=== PATIENT | male | born 1965 | race Caucasian/White ===

== ENCOUNTER 2018-01-28 21:45 | Emergency (ER) | payer OTHER ==
[2018-01-28 22:29] VITALS: RESP 18
--- NOTE | 2018-01-28 23:32 | ED ---
General Adult HPI - General Source: patient (And friend), RN notes reviewed Mode of arrival: ambulatory Limitations: no limitations <Raul Smith - Last Filed: 01/29/18 00:54> <Terrance Condon - Last Filed: 01/29/18 04:31> - General Chief complaint: Psychiatric Symptoms Stated complaint: Depression Time Seen by Provider: 01/28/18 23:22 - History of Present Illness Initial comments: Patient is a pleasant 52-year-old male presenting to the emergency Department with a friend for depression. Patient does admit to being a drinker. Patient has had several seizures over the past year. Last one was approximately a week ago. Patient states he just wakes up in the hospital. Last time patient was at [facility]. Patient has not had seizures since that time. Patient is not supposed be on any seizure medication. Patient does feel depressed regarding his alcohol problems. Patient denies suicidal or homicidal thoughts. No hallucinations. No physical complaints. (Raul Smith) - Related Data Home Medications Medication Instructions Recorded Confirmed Acetaminophen Tab [Tylenol Tab] 1,000 mg PO Q6HR PRN 01/28/18 01/28/18 Thermacare Patch 1 patch TOPICAL DAILY PRN 01/28/18 01/28/18 Vitamin B Complex 1 cap PO DAILY 01/28/18 01/28/18 Allergies Allergy/AdvReac Type Severity Reaction Status Date / Time No Known Allergies Allergy Verified 01/28/18 23:32 Review of Systems ROS Other: All systems not noted in ROS Statement are negative. Constitutional: Denies: fever Eyes: Denies: eye pain ENT: Denies: ear pain Respiratory: Denies: cough Cardiovascular: Denies: chest pain Endocrine: Denies: fatigue Gastrointestinal: Denies: abdominal pain Genitourinary: Denies: dysuria Musculoskeletal: Denies: back pain Skin: Denies: rash Neurological: Denies: headache, weakness, confusion <Raul Smith - Last Filed: 01/29/18 00:54> ROS Other: All systems not noted in ROS Statement are negative. <Terrance Condon - Last Filed: 01/29/18 04:31> ROS Statement: Those systems with pertinent positive or pertinent negative responses have been documented in the HPI. Past Medical History Past Medical History: Seizure Disorder Additional Past Medical History / Comment(s): head injury. History of Any Multi-Drug Resistant Organisms: None Reported Past Surgical History: Orthopedic Surgery Past Psychological History: Depression Smoking Status: Current every day smoker Past Alcohol Use History: Abuse Past Drug Use History: Marijuana <Raul Smith - Last Filed: 01/29/18 00:54> General Exam Limitations: no limitations General appearance: alert, in no apparent distress Head exam: Present: atraumatic, normocephalic Eye exam: Present: normal appearance, PERRL, EOMI. Absent: nystagmus ENT exam: Present: normal oropharynx Neck exam: Present: normal inspection Respiratory exam: Present: normal lung sounds bilaterally Cardiovascular Exam: Present: regular rate, normal rhythm GI/Abdominal exam: Present: soft. Absent: tenderness Extremities exam: Present: normal inspection Neurological exam: Present: alert, CN II-XII intact. Absent: motor sensory deficit Expanded Neurological exam: Present: protecting the airway Speech: Present: fluid speech Cranial nerves: EOM's Intact: Normal Motor strength exam: RUE: 5, LUE: 5, RLE: 5, LLE: 5 Eye Response: (4) open spontaneously Motor Response: (6) obeys commands Verbal Response: (5) oriented Psychiatric exam: Present: normal affect, normal mood Skin exam: Present: normal color <Raul Smith - Last Filed: 01/29/18 00:54> Course <Raul Smith - Last Filed: 01/29/18 00:54> <Terrance Condon - Last Filed: 01/29/18 04:31> Vital Signs 01/28/18 22:23 Temperature 98.2 F Pulse Rate 78 Respiratory 18 Rate Blood Pressure 164/88 O2 Sat by Pulse 97 Oximetry - Reevaluation(s) Reevaluation #1: 01/29/18 00:54 [facility] was contacted and had limited documentation. They state patient was seen there only for alcohol intoxication. They're unable to fax over any additional chart or information. (Raul Smith) Medical Decision Making <Raul Smith - Last Filed: 01/29/18 00:54> <Terrance Condon - Last Filed: 01/29/18 04:31> - Medical Decision Making I receive this patient has a sign out, pending behavioral health evaluation. The psychiatrist does feel that the patient is stable for outpatient treatment. The patient is les for safety. (Terrance Condon) - Lab Data Lab Results 01/28/18 Range/Units 23:34 Urine Opiates Screen Not Detected (NotDetected) Ur Oxycodone Screen Not Detected (NotDetected) Urine Methadone Screen Not Detected (NotDetected) Ur Propoxyphene Screen Not Detected (NotDetected) Ur Barbiturates Screen Not Detected (NotDetected) U Tricyclic Antidepress Not Detected (NotDetected) Ur Phencyclidine Scrn Not Detected (NotDetected) Ur Amphetamines Screen Not Detected (NotDetected) U Methamphetamines Scrn Not Detected (NotDetected) U Benzodiazepines Scrn Not Detected (NotDetected) Urine Cocaine Screen Not Detected (NotDetected) U Marijuana (THC) Screen Detected H (NotDetected) Disposition <Raul Smith - Last Filed: 01/29/18 00:54> Is patient prescribed a controlled substance at d/c from ED?: No <Terrance Condon - Last Filed: 01/29/18 04:31> Clinical Impression: Mood disorder Disposition: HOME SELF-CARE Condition: Fair Instructions: Mood Disorders (ED) Referrals: None,Stated [Primary Care Provider] - 1-2 days Kenna Batres MD [Medical Doctor] - 1-2 days
[2018-01-28] MEDS ORDERED: NICOTINE 14MG/24HR PATCH TRANSDERM STA (23:43)
[2018-01-28 23:53] LABS: Amphetamine Screen,Urine Not Detected (NotDetected); Barbiturate Screen,Urine Not Detected (NotDetected); Benzodiazepines Screen,Urine Not Detected (NotDetected); Cocaine Screen,Urine Not Detected (NotDetected); Methadone Screen, Urine Not Detected (NotDetected); Opiate Screen,Urine Not Detected (NotDetected); Oxycodone Screen, Urine Not Detected (NotDetected); Phencyclidine Screen,Urine Not Detected (NotDetected); Tricyclic Antidepressant,Urine Not Detected (NotDetected); Urn Cannabinoid Scrn Detected (NotDetected)
[2018-01-29 05:15] VITALS: BP 127/78; PULSE 80; TEMP 97.7
== END 2018-01-29 05:00 | disposition home or self-care (01) ==
LOC: EC 21:45
DX: F32.9 Major depressive disorder, single episode, unspecified (principal); F17.200 Nicotine dependence, unspecified, uncomplicated
CPT/HCPCS: 82075; 80306; 99284; S4990

== ENCOUNTER → 2018-04-05 | Outpatient (CLI) | payer OTHER ==
--- NOTE | 2018-04-07 09:41 | MR ---
EXAMINATION TYPE: MR lumbar spine wo con DATE OF EXAM: 04/05/2018 COMPARISON: NONE HISTORY: Lumbago with right-sided sciatica per order. Back pain for 25 years per patient. TECHNIQUE: Multiplanar, multisequence imaging of the lumbar spine is performed without IV contrast. FINDINGS: Survey images show levoconvex scoliosis centered at L3 level. Sagittal images of the lumbar spine show vertebral body heights to appear satisfactory. Some prominent Schmorl nodes upper lumbar spine are present. There is borderline grade 2 anterolisthesis of L5 on S1 measuring up to 11 mm on s agittal images from posterior vertebral body margin. Multilevel disc desiccation with fairly moderate to advanced multilevel disc space narrowing is seen. Multilevel vacuum disc phenomenon is seen. Mult ilevel small posterior disc herniations are seen on sagittal images The conus medullaris is high in p osition ending at mid T12 level. No suspicious signal is seen. No suspicious clumping of lumbosacral nerve roots is noted. Bilateral pars defects L5 level felt present. Some heterogeneous Modic type I e ndplate changes L3-L4 level are seen. Moderate multilevel anterior spurring mid to lower lumbar spine is present. Axial images at T12-L1 level are felt within normal limits. Axial images at L1-L2 level show mild to moderate broad disc bulge mildly effacing anterior thecal sa c, bilateral neural foramina are patent. Axial images at the L2-L3 level show moderate broad-based posterior disc protrusion effacing anterior thecal sac on axial image 19, bilateral neural foramina are patent. Axial images at L3-L4 level show moderate broad disc bulge effacing anterior thecal sac and causing m ild to moderate right and mild left-sided anterior inferior neural foraminal narrowing. Axial images at the L4-L5 level show spondylolisthesis and left paracentral disc protrusion effacing anterolateral thecal sac and lateral recess. There is mild to moderate left greater than right facet degenerative changes and ligament flavum hypertrophy. There is moderate left-sided neural foraminal n arrowing. Right-sided neural foramen is patent. Axial images at L5-S1 level show advanced facet degenerative changes bilaterally, there is effacement of right posterior lateral thecal sac. There is spondylolisthesis and central disc protrusion. There is advanced left-sided neural foraminal narrowing encroaching on left L5 nerve sagittal image 6. Rig ht-sided neural foramina shows mild to moderate inferior neural foraminal narrowing. No suspicious incidental retroperitoneal findings are seen. IMPRESSION: Bilateral pars defects L5 level with grade 2 spondylolisthesis L5 on S1. Multilevel degen erative changes in lumbar spine most prominent mid to lower lumbar levels as detailed above.
== END | disposition home or self-care (01) ==
LOC: RADMRIMAIN 17:26
PROVIDERS: ATTEND Internal Medicine
DX: M43.17 Spondylolisthesis, lumbosacral region (principal); M47.27 Other spondylosis with radiculopathy, lumbosacral region
CPT/HCPCS: 72148

== ENCOUNTER 2018-05-31 12:45 | Emergency (ER) | payer OTHER ==
[2018-05-31] MEDS ORDERED: SODIUM CHLORIDE 0.9% 1,000 ML IV STA (13:30)
[2018-05-31 14:18] LABS: Basophils % (A) 0 %; Eosinophils # (A) 0.2 k/uL (0-0.7); Eosinophils % (A) 2 %; HCT 42.4 % (39.0-53.0); HGB 13.9 gm/dL (13.0-17.5); Lymphocytes # (A) 1.5 k/uL (1.0-4.8); Lymphocytes % (A) 14 %; MCH 30.5 pg (25.0-35.0); MCHC 32.9 g/dL (31.0-37.0); MCV 92.9 fL (80.0-100.0); Mean Platelet Volume 7.4; Monocytes # (A) 0.5 k/uL (0-1.0); Monocytes % (A) 5 %; Neutrophils # (A) 8.3 k/uL (1.3-7.7); Neutrophils % (A) 78 %; Platelet Count 247 k/uL (150-450); RBC 4.56 m/uL (4.30-5.90); RDW 12.2 % (11.5-15.5); WBC 10.7 k/uL (3.8-10.6)
[2018-05-31 14:21] LABS: ALT 19 U/L (21-72); AST 27 U/L (17-59); Albumin 4.2 g/dL (3.5-5.0); Alcohol <10 mg/dL; Alkaline Phosphatase 76 U/L (38-126); Anion Gap 10 mmol/L; Blood Urea Nitrogen 13 mg/dL (9-20); Calcium 9.8 mg/dL (8.4-10.2); Carbon Dioxide 24 mmol/L (22-30); Chloride 104 mmol/L (98-107); Glucose 99 mg/dL (74-99); Magnesium 1.7 mg/dL (1.6-2.3); Potassium 3.8 mmol/L (3.5-5.1); Sodium 138 mmol/L (137-145); Total Bilirubin 0.4 mg/dL (0.2-1.3); Total Protein 7.4 g/dL (6.3-8.2)
--- NOTE | 2018-05-31 14:48 | CT ---
EXAMINATION TYPE: CT brain wo con DATE OF EXAM: 05/31/2018 COMPARISON: None HISTORY: Seizure activity. CT DLP: 1094.[address] of the brain was performed. The ventricles, basal cisterns and sulci overlying the cerebral convexities demonstrate mild enlargem ent. Small area of remote insult right frontal lobe. There is no evidence for intracranial hemorrhage or sulcal effacement. There is decreased attenuation about the periventricular white matter and deep white matter of both c erebral hemispheres, compatible with chronic small vessel ischemia. Differential diagnosis does inclu de demyelination. No mass effects are seen.No midline shift. Osseous calvarium is intact. If symptoms persist consider MRI. IMPRESSION: 1. Age related atrophic and chronic small vessel ischemic change without acute intracranial process s een at this time.
[2018-05-31 14:49] LABS: Lactic Acid, Venous 1.3 mmol/L (0.7-2.0)
--- NOTE | 2018-05-31 15:13 | ED ---
Weakness HPI - General Chief complaint: Weakness Stated complaint: weakness, bad memory, HAD a seizure Time Seen by Provider: 05/31/18 13:16 Source: patient, RN notes reviewed Mode of arrival: ambulatory Limitations: no limitations - History of Present Illness Initial comments: 53-year-old male presents emergency Department chief complaint of confusion. Patient states that he was discharged from [facility] yesterday after he had a seizure and was transferred from [facility] today. Patient states he was admitted on Sunday and discharge on . Patient states that he just felt fatigued today and felt confused at times. Patient is not bleeding had another seizure. Patient states is currently taking Keppra. Patient denies any focal weakness no difficulty ambulate in. Denies illicit drug use no alcohol abuse. Patient states he has not started on any other new medications. Denies chest pain, shortness breath, nausea, vomiting, diarrhea constipation. No fevers or chills. - Related Data Home Medications Medication Instructions Recorded Confirmed Escitalopram [Lexapro] 20 mg PO DAILY 05/31/18 05/31/18 Ibuprofen [Motrin Ib] 400 mg PO Q6H PRN 05/31/18 05/31/18 Naproxen Sodium [Aleve] 220 mg PO DAILY PRN 05/31/18 05/31/18 levETIRAcetam [Keppra] 500 mg PO Q12HR 05/31/18 05/31/18 Allergies Allergy/AdvReac Type Severity Reaction Status Date / Time No Known Allergies Allergy Verified 05/31/18 13:17 Review of Systems ROS Statement: Those systems with pertinent positive or pertinent negative responses have been documented in the HPI. ROS Other: All systems not noted in ROS Statement are negative. Past Medical History Past Medical History: Seizure Disorder Additional Past Medical History / Comment(s): head injury. History of Any Multi-Drug Resistant Organisms: None Reported Past Surgical History: Orthopedic Surgery Past Psychological History: Depression Smoking Status: Current every day smoker Past Alcohol Use History: Abuse Past Drug Use History: Marijuana General Exam Limitations: no limitations General appearance: alert, in no apparent distress Head exam: Present: atraumatic, normocephalic, normal inspection Eye exam: Present: normal appearance, PERRL, EOMI. Absent: scleral icterus, conjunctival injection, periorbital swelling ENT exam: Present: normal exam, normal oropharynx, mucous membranes moist, TM's normal bilaterally Neck exam: Present: normal inspection. Absent: tenderness, meningismus, lymphadenopathy Respiratory exam: Present: normal lung sounds bilaterally. Absent: respiratory distress, wheezes, rales, rhonchi, stridor Cardiovascular Exam: Present: regular rate, normal rhythm, normal heart sounds. Absent: systolic murmur, diastolic murmur, rubs, gallop, clicks GI/Abdominal exam: Present: soft, normal bowel sounds. Absent: distended, tenderness, guarding, rebound, rigid Neurological exam: Present: alert, oriented X3, CN II-XII intact, reflexes normal, other (Finger to nose intact bilaterally without receiving). Absent: motor sensory deficit Skin exam: Present: warm, dry, intact, normal color. Absent: rash Course Vital Signs 05/31/18 05/31/18 05/31/18 13:04 13:32 13:40 Temperature 98 F Pulse Rate 97 86 82 Respiratory 20 10 L 21 Rate Blood Pressure 136/95 142/98 O2 Sat by Pulse 100 99 98 Oximetry 05/31/18 05/31/18 05/31/18 13:46 13:50 14:00 Temperature Pulse Rate 81 89 72 Respiratory 22 18 19 Rate Blood Pressure 142/98 O2 Sat by Pulse 98 100 Oximetry 05/31/18 05/31/18 05/31/18 14:10 14:20 15:30 Temperature 98.6 F Pulse Rate 78 79 75 Respiratory 17 20 18 Rate Blood Pressure 132/88 145/90 O2 Sat by Pulse 99 100 100 Oximetry 05/31/18 16:22 Temperature 97.8 F Pulse Rate 82 Respiratory 16 Rate Blood Pressure 135/81 O2 Sat by Pulse 99 Oximetry Medical Decision Making - Medical Decision Making 53-year-old male presented from for not feeling well and subject confusion. Patient is awake alert and oriented 4. Patient has normal gait here. Patient lab work, CT, EKG is unremarkable. Patient does have marijuana onboard. Patient may have been postictal along with use of marijuana today. Patient will be discharged return parameters were discussed. - Lab Data Result diagrams: 05/31/18 13:40 05/31/18 13:40 Lab Results 05/31/18 05/31/18 05/31/18 Range/Units 13:40 13:40 13:40 WBC 10.7 H (3.8-10.6) k/uL RBC 4.56 (4.30-5.90) m/uL Hgb 13.9 (13.0-17.5) gm/dL Hct 42.4 (39.0-53.0) % MCV 92.9 (80.0-100.0) fL MCH 30.5 (25.0-35.0) pg MCHC 32.9 (31.0-37.0) g/dL RDW 12.2 (11.5-15.5) % Plt Count 247 (150-450) k/uL Neutrophils % 78 % Lymphocytes % 14 % Monocytes % 5 % Eosinophils % 2 % Basophils % 0 % Neutrophils # 8.3 H (1.3-7.7) k/uL Lymphocytes # 1.5 (1.0-4.8) k/uL Monocytes # 0.5 (0-1.0) k/uL Eosinophils # 0.2 (0-0.7) k/uL Basophils # 0.0 (0-0.2) k/uL Sodium 138 (137-145) mmol/L Potassium 3.8 (3.5-5.1) mmol/L Chloride 104 (98-107) mmol/L Carbon Dioxide 24 (22-30) mmol/L Anion Gap 10 mmol/L BUN 13 (9-20) mg/dL Creatinine 0.69 (0.66-1.25) mg/dL Est GFR (CKD-EPI)AfAm >90 (>60 ml/min/1.73 sqM) Est GFR (CKD-EPI)NonAf >90 (>60 ml/min/1.73 sqM) Glucose 99 (74-99) mg/dL Plasma Lactic Acid Bartolo 1.3 (0.7-2.0) mmol/L Calcium 9.8 (8.4-10.2) mg/dL Magnesium 1.7 (1.6-2.3) mg/dL Total Bilirubin 0.4 (0.2-1.3) mg/dL AST 27 (17-59) U/L ALT 19 L (21-72) U/L Alkaline Phosphatase 76 (38-126) U/L Ammonia 10 (<30) umol/L Troponin I (0.000-0.034) ng/mL Total Protein 7.4 (6.3-8.2) g/dL Albumin 4.2 (3.5-5.0) g/dL Urine Color Urine Appearance (Clear) Urine pH (5.0-8.0) Ur Specific [place] (1.001-1.035) Urine Protein (Negative) Urine Glucose (UA) (Negative) Urine Ketones (Negative) Urine Blood (Negative) Urine Nitrite (Negative) Urine Bilirubin (Negative) Urine Urobilinogen (<2.0) mg/dL Ur Leukocyte Esterase (Negative) Urine Opiates Screen (NotDetected) Ur Oxycodone Screen (NotDetected) Urine Methadone Screen (NotDetected) Ur Propoxyphene Screen (NotDetected) Ur Barbiturates Screen (NotDetected) U Tricyclic Antidepress (NotDetected) Ur Phencyclidine Scrn (NotDetected) Ur Amphetamines Screen (NotDetected) U Methamphetamines Scrn (NotDetected) U Benzodiazepines Scrn (NotDetected) Urine Cocaine Screen (NotDetected) U Marijuana (THC) Screen (NotDetected) Serum Alcohol <10 mg/dL 05/31/18 05/31/18 Range/Units 13:40 15:05 WBC (3.8-10.6) k/uL RBC (4.30-5.90) m/uL Hgb (13.0-17.5) gm/dL Hct (39.0-53.0) % MCV (80.0-100.0) fL MCH (25.0-35.0) pg MCHC (31.0-37.0) g/dL RDW (11.5-15.5) % Plt Count (150-450) k/uL Neutrophils % % Lymphocytes % % Monocytes % % Eosinophils % % Basophils % % Neutrophils # (1.3-7.7) k/uL Lymphocytes # (1.0-4.8) k/uL Monocytes # (0-1.0) k/uL Eosinophils # (0-0.7) k/uL Basophils # (0-0.2) k/uL Sodium (137-145) mmol/L Potassium (3.5-5.1) mmol/L Chloride (98-107) mmol/L Carbon Dioxide (22-30) mmol/L Anion Gap mmol/L BUN (9-20) mg/dL Creatinine (0.66-1.25) mg/dL Est GFR (CKD-EPI)AfAm (>60 ml/min/1.73 sqM) Est GFR (CKD-EPI)NonAf (>60 ml/min/1.73 sqM) Glucose (74-99) mg/dL Plasma Lactic Acid Bartolo (0.7-2.0) mmol/L Calcium (8.4-10.2) mg/dL Magnesium (1.6-2.3) mg/dL Total Bilirubin (0.2-1.3) mg/dL AST (17-59) U/L ALT (21-72) U/L Alkaline Phosphatase (38-126) U/L Ammonia (<30) umol/L Troponin I <0.012 (0.000-0.034) ng/mL Total Protein (6.3-8.2) g/dL Albumin (3.5-5.0) g/dL Urine Color Yellow Urine Appearance Clear (Clear) Urine pH 5.5 (5.0-8.0) Ur Specific [place] 1.006 (1.001-1.035) Urine Protein Negative (Negative) Urine Glucose (UA) Negative (Negative) Urine Ketones Negative (Negative) Urine Blood Negative (Negative) Urine Nitrite Negative (Negative) Urine Bilirubin Negative (Negative) Urine Urobilinogen <2.0 (<2.0) mg/dL Ur Leukocyte Esterase Negative (Negative) Urine Opiates Screen Not Detected (NotDetected) Ur Oxycodone Screen Not Detected (NotDetected) Urine Methadone Screen Not Detected (NotDetected) Ur Propoxyphene Screen Not Detected (NotDetected) Ur Barbiturates Screen Not Detected (NotDetected) U Tricyclic Antidepress Not Detected (NotDetected) Ur Phencyclidine Scrn Not Detected (NotDetected) Ur Amphetamines Screen Not Detected (NotDetected) U Methamphetamines Scrn Not Detected (NotDetected) U Benzodiazepines Scrn Not Detected (NotDetected) Urine Cocaine Screen Not Detected (NotDetected) U Marijuana (THC) Screen Detected H (NotDetected) Serum Alcohol mg/dL Disposition Clinical Impression: Fatigue, Seizure Disposition: HOME SELF-CARE Condition: Stable Instructions: Recurrent Seizures in Adults (ED) Additional Instructions: Please return to the Emergency Department if symptoms worsen or any other concerns. Is patient prescribed a controlled substance at d/c from ED?: No Referrals: Annmarie Thibodeaux MD [Primary Care Provider] - 1-2 days Time of Disposition: 17:02
[2018-05-31 15:39] LABS: Appearance,Urine Clear (Clear); Bilirubin,Urine Negative (Negative); Blood,Urine Negative (Negative); Color,Urine Yellow; Glucose,Urine (UA) Negative (Negative); Ketones,Urine Negative (Negative); Leukocyte Esterase,Urine Negative (Negative); Nitrite,Urine Negative (Negative); PH, Urine 5.5 (5.0-8.0); Protein,Urine Negative (Negative); Specific Gravity,Urine 1.006 (1.001-1.035); Urobilinogen,Urine <2.0 mg/dL (<2.0)
[2018-05-31 15:49] LABS: Amphetamine Screen,Urine Not Detected (NotDetected); Barbiturate Screen,Urine Not Detected (NotDetected); Benzodiazepines Screen,Urine Not Detected (NotDetected); Cocaine Screen,Urine Not Detected (NotDetected); Methadone Screen, Urine Not Detected (NotDetected); Opiate Screen,Urine Not Detected (NotDetected); Oxycodone Screen, Urine Not Detected (NotDetected); Phencyclidine Screen,Urine Not Detected (NotDetected); Tricyclic Antidepressant,Urine Not Detected (NotDetected); Urn Cannabinoid Scrn Detected (NotDetected)
[2018-05-31 17:24] VITALS: BP 128/85; PULSE 95; RESP 20; TEMP 98
== END 2018-05-31 17:10 | disposition home or self-care (01) ==
LOC: EC 12:45
DX: G40.909 Epilepsy, unspecified, not intractable, without status epilepticus (principal); R53.83 Other fatigue; F32.9 Major depressive disorder, single episode, unspecified; F17.200 Nicotine dependence, unspecified, uncomplicated; Z79.899 Other long term (current) drug therapy
CPT/HCPCS: 36415; 93005; 80053; 82140; 83605; 83735; 84484; 85025; 81003; 80306; 70450; 99285; 96360; 96361; G0480; 80320

== ENCOUNTER → 2018-11-26 | Outpatient (CLI) | payer OTHER ==
--- NOTE | 2018-11-26 13:14 | MR ---
EXAMINATION TYPE: MR brain wo con DATE OF EXAM: 11/26/2018 COMPARISON: CT brain May 31, 2018 HISTORY: Seizure disorder, history of prior hemorrhage with baldomero hole decompression for patient. TECHNIQUE: Multiplanar, multisequence imaging of the brain and brainstem is performed without IV cont rast. FINDINGS: Diffusion weighted images demonstrate no evidence of a recent infarct or other diffusion abnormality. There is no worrisome extra-axial fluid collection. Mild ventricular and sulcal prominence is present . There is artifact prior right frontal baldomero hole axial images 28 with focal area of linear encephalo malacia extending through axial image 23 along course of artifact from prior shunt catheter placement . Occasional focus of T2 hyperintensity throughout the deep and periventricular white matter is prese nt. There are slightly larger focal area of encephalomalacia inferior right frontal lobe axial image [address] axial image 15. Suspect old lacunar infarct involving the centr al annabelle dorsal aspect sagittal image 11 and axial image 11. Midline structures demonstrate slight prominence of CSF inferior central posterior fossa could reflec t brennen cisterna magna versus small arachnoid cyst, former is favored. The craniocervical junction ap pears within normal limits. Normal vascular flow voids are present. Mild mucosal thickening involving left frontal sinus and anterior ethmoid sinuses bilaterally as well as right sphenoid sinus is prese nt. Globes are intact bilaterally. IMPRESSION: Mild diffuse cerebral atrophy and mild to minimal chronic small vessel ischemic change. R ight-sided surgical change with linear area of encephalomalacia. 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 Suspect small lacunar infarct in the central annabelle.
== END | disposition home or self-care (01) ==
LOC: RADMRIMAIN 11:30
PROVIDERS: ATTEND Psychiatry & Neurology Neurology
DX: G31.9 Degenerative disease of nervous system, unspecified (principal); I67.82 Cerebral ischemia; G93.89 Other specified disorders of brain; G40.909 Epilepsy, unspecified, not intractable, without status epilepticus
CPT/HCPCS: 70551

== ENCOUNTER → 2018-11-27 | Outpatient (CLI) | payer OTHER | END | disposition home or self-care (01) | LOC: LABWHC1 10:34 | PROVIDERS: ATTEND Psychiatry & Neurology Neurology | DX: G40.909 Epilepsy, unspecified, not intractable, without status epilepticus (principal) | CPT/HCPCS: 36415; 80177 ==

== ENCOUNTER 2019-02-28 23:08 | Observation (INO) | payer OTHER ==
[2019-03-01] MEDS ORDERED: SODIUM CHLORIDE 0.9% 1,000 ML IV STA (00:41)
[2019-03-01 01:44] LABS: Basophils % (A) 1 %; Eosinophils # (A) 0.2 k/uL (0-0.7); Eosinophils % (A) 4 %; Lymphocytes # (A) 2.4 k/uL (1.0-4.8); Lymphocytes % (A) 36 %; MCH 33.8 pg (25.0-35.0); MCHC 34.1 g/dL (31.0-37.0); MCV 99.2 fL (80.0-100.0); Mean Platelet Volume 7.1; Monocytes # (A) 0.3 k/uL (0-1.0); Monocytes % (A) 5 %; Neutrophils # (A) 3.4 k/uL (1.3-7.7); Neutrophils % (A) 52 %; Platelet Count 238 k/uL (150-450); RBC 3.83 m/uL (4.30-5.90); RDW 13.5 % (11.5-15.5); WBC 6.6 k/uL (3.8-10.6)
[2019-03-01 01:49] LABS: African American GFR (CKD) >90 (>60 ml/min/1.73 sqM); Anion Gap 13 mmol/L; Blood Urea Nitrogen 18 mg/dL (9-20); Calcium 8.7 mg/dL (8.4-10.2); Carbon Dioxide 21 mmol/L (22-30); Chloride 109 mmol/L (98-107); Glucose 92 mg/dL (74-99); Potassium 3.5 mmol/L (3.5-5.1); Sodium 143 mmol/L (137-145)
[2019-03-01 01:56] LABS: Alcohol 264 mg/dL
--- NOTE | 2019-03-01 02:34 | ED ---
General Adult HPI - General Chief complaint: Alcohol Stated complaint: ETOH Time Seen by Provider: 03/01/19 00:41 Source: patient, EMS Mode of arrival: EMS Limitations: no limitations - History of Present Illness Initial comments: Dictation was produced using [email or web address] dictation software. please excuse any grammatical, word or spelling errors. Chief Complaint: 54-year-old male presents with intoxication. History of Present Illness: 54-year-old male who is brought in by EMS. Patient was found to be significantly less intoxicated. Patient is a known homeless gentleman. Patient states he was drinking prior to going onto the bus. Patient has any pain. He denies any shortness of breath. Patient is a poor historian. The ROS documented in this emergency department record has been reviewed and confirmed by me. Those systems with pertinent positive or negative responses have been documented in the HPI. All other systems are other negative and/or noncontributory. PHYSICAL EXAM: General Impression: Alert and oriented x3, not in acute distress, smells of EtOH HEENT: Normocephalic atraumatic, extra-ocular movements intact, pupils equal and reactive to light bilaterally, mucous membranes moist. Cardiovascular: Heart regular rate and rhythm, S1&S2 audible, no murmurs, rubs or gallops Chest: Lungs clear to auscultation bilaterally, no rhonchi, no wheeze, no rales Abdomen: Bowel sounds present, abdomen soft, non-tender, non-distended, no organomegaly Musculoskeletal: Pulses present and equal in all extremities, no peripheral edema Motor: no focal deficits noted Neurological: CN II-XII grossly intact, no focal motor or sensory deficits noted on the nystagmus Skin: Intact with no visualized rashes Psych: Normal affect and mood ED course: 54-year-old male presents with EtOH intoxication. Patient is a poor historian. Physical examination is benign. No signs of trauma. Vital signs upon arrival are within acceptable limits. Patient's well-appearing. After evaluation obtained. CBC unremarkable. Metabolic panel is negative. Serum alcohol is 264. Given patient's degree of intoxication we will have patient admitted observation. Suspicion case with Dr. Thibodeaux who is willing to accept patient care. - Related Data Home Medications Medication Instructions Recorded Confirmed levETIRAcetam [Keppra] 500 mg PO Q12HR 05/31/18 02/28/19 Allergies Allergy/AdvReac Type Severity Reaction Status Date / Time No Known Allergies Allergy Verified 02/28/19 23:29 Review of Systems ROS Statement: Those systems with pertinent positive or pertinent negative responses have been documented in the HPI. ROS Other: All systems not noted in ROS Statement are negative. Past Medical History Past Medical History: Seizure Disorder Additional Past Medical History / Comment(s): alcoholism History of Any Multi-Drug Resistant Organisms: None Reported Past Surgical History: Orthopedic Surgery Past Psychological History: Anxiety, Depression Smoking Status: Current every day smoker Past Alcohol Use History: Abuse, Daily, Heavy Past Drug Use History: Marijuana General Exam Limitations: no limitations Course Vital Signs 02/28/19 23:26 Temperature 97.0 F L Pulse Rate 84 Respiratory 16 Rate Blood Pressure 127/70 O2 Sat by Pulse 97 Oximetry Medical Decision Making - Lab Data Result diagrams: 03/01/19 01:10 03/01/19 01:10 Lab Results 03/01/19 03/01/19 Range/Units 01:10 01:10 WBC 6.6 (3.8-10.6) k/uL RBC 3.83 L (4.30-5.90) m/uL Hgb 13.0 (13.0-17.5) gm/dL Hct 38.0 L (39.0-53.0) % MCV 99.2 (80.0-100.0) fL MCH 33.8 (25.0-35.0) pg MCHC 34.1 (31.0-37.0) g/dL RDW 13.5 (11.5-15.5) % Plt Count 238 (150-450) k/uL Neutrophils % 52 % Lymphocytes % 36 % Monocytes % 5 % Eosinophils % 4 % Basophils % 1 % Neutrophils # 3.4 (1.3-7.7) k/uL Lymphocytes # 2.4 (1.0-4.8) k/uL Monocytes # 0.3 (0-1.0) k/uL Eosinophils # 0.2 (0-0.7) k/uL Basophils # 0.0 (0-0.2) k/uL Sodium 143 (137-145) mmol/L Potassium 3.5 (3.5-5.1) mmol/L Chloride 109 H (98-107) mmol/L Carbon Dioxide 21 L (22-30) mmol/L Anion Gap 13 mmol/L BUN 18 (9-20) mg/dL Creatinine 0.93 (0.66-1.25) mg/dL Est GFR (CKD-EPI)AfAm >90 (>60 ml/min/1.73 sqM) Est GFR (CKD-EPI)NonAf >90 (>60 ml/min/1.73 sqM) Glucose 92 (74-99) mg/dL Calcium 8.7 (8.4-10.2) mg/dL Magnesium 2.0 (1.6-2.3) mg/dL Serum Alcohol 264 H* mg/dL Disposition Clinical Impression: Alcoholic intoxication Disposition: ADMITTED IP TO THIS HOSP Condition: Fair Referrals: Annmarie Thibodeaux MD [Primary Care Provider] - 1-2 days Decision Time: 02:40
[2019-03-01] MEDS ORDERED: NALOXONE 0.4 MG/ML 1 ML VIAL IV PRN (02:40)
[2019-03-01] MEDS: levETIRAcetam 500 MG TAB PO SCH ×2 (09:28→20:20)
[2019-03-01] MEDS: NICOTINE 21MG/24HR PATCH TRANSDERM SCH (09:28)
--- NOTE | 2019-03-01 12:32 | P.HPIM ---
History of Present Illness H&P Date: 03/01/19 Kimo Briceño is a 54-year-old male who was found unconscious and was brought in to [facility] emergency room he had evidence of alcohol intoxication, his alcohol level was 264 he was started on CIWA protocol and was admitted to medical floor for further evaluation and treatment. Patient denies having any symptoms there is no fever or chills no headache or dizziness no chest pain no shortness of breath no cough no nausea or vomiting no abdominal pain no diarrhea no burning was urination no frequency or urgency and no hematuria. He has a known history of seizure disorder for which she is maintained on Keppra he denies any recent seizures. Past Medical History Past Medical History: Seizure Disorder Additional Past Medical History / Comment(s): alcoholism History of Any Multi-Drug Resistant Organisms: None Reported Past Surgical History: Orthopedic Surgery Past Psychological History: Anxiety, Depression Smoking Status: Current every day smoker Past Alcohol Use History: Abuse, Daily, Heavy Past Drug Use History: Marijuana Medications and Allergies Home Medications Medication Instructions Recorded Confirmed Type levETIRAcetam [Keppra] 500 mg PO Q12HR 05/31/18 02/28/19 History Allergies Allergy/AdvReac Type Severity Reaction Status Date / Time No Known Allergies Allergy Verified 02/28/19 23:29 Physical Exam Vitals: Vital Signs Temp Pulse Pulse Resp BP BP Pulse Ox 03/01/19 07:22 98.6 F 87 18 110/76 94 L 03/01/19 04:01 99.0 F 82 18 94/59 93 L 03/01/19 03:16 97.9 F 86 17 124/51 96 02/28/19 23:26 97.0 F L 84 16 127/70 97 Intake and Output 02/28/19 03/01/19 03/01/19 22:59 06:59 14:59 Other: Voiding Method Toilet Urinal # Voids 1 Weight 65.771 kg In general patient is alert and oriented 3 in no apparent distress HEENT head normocephalic and atraumatic Neck is supple no JVD no goiter no lymphadenopathy Chest exam reveals a few scattered crackles no wheezing Cardiac exam reveals regular heart sounds S1 and S2 no gallops no murmurs Abdomen is soft nontender no organomegaly was normal bowel sounds Extremity exam reveals no edema no cyanosis or clubbing Neurological examination reveals no gross focal deficit Skin exam significant for skin lesion on the dorsal aspect of the right hand suspicious for malignancy Results CBC & Chem 7: 03/01/19 01:10 03/01/19 01:10 Labs: Abnormal Lab Results - Last 24 Hours (Table) 03/01/19 03/01/19 Range/Units 01:10 01:10 RBC 3.83 L (4.30-5.90) m/uL Hct 38.0 L (39.0-53.0) % Chloride 109 H (98-107) mmol/L Carbon Dioxide 21 L (22-30) mmol/L Serum Alcohol 264 H* mg/dL Thrombosis Risk Factor Assmnt - Choose All That Apply Any of the Below Risk Factors Present?: Yes Each Factor Represents 1 point: Age 41-60 years Other Risk Factors: No Other congenital or acquired thrombophilia - If yes, enter type in comment: No Thrombosis Risk Factor Assessment Total Risk Factor Score: 1 Thrombosis Risk Factor Assessment Level: Low Risk Assessment and Plan Plan: #1 alcohol intoxication with early alcohol withdrawal #2 underlying history of seizure disorder #3 tobacco abuse #4 history of closed head injury with subsequence psychosocial debility At this time continue was current management with IV fluid and CIWA protocol Possible discharge to home tomorrow if stable
[2019-03-01] MEDS ORDERED: LORazepam 2 MG/ML INJ IV PRN ×4 (13:05)
[2019-03-01 13:19] LABS: Amylase 84 U/L (30-110)
[2019-03-01 13:53] VITALS: BMI 18.1
[2019-03-01] MEDS: THIAMINE 100 MG TAB PO SCH (17:24)
[2019-03-02 07:00] VITALS: BP 142/82; PULSE 61; RESP 18; TEMP 98.2
[2019-03-02 07:12] LABS: Basophils # (A) 0.1 k/uL (0-0.2); Basophils % (A) 1 %; Eosinophils # (A) 0.2 k/uL (0-0.7); Eosinophils % (A) 3 %; HCT 41.5 % (39.0-53.0); HGB 13.9 gm/dL (13.0-17.5); Lymphocytes # (A) 1.7 k/uL (1.0-4.8); Lymphocytes % (A) 22 %; MCH 33.5 pg (25.0-35.0); MCHC 33.6 g/dL (31.0-37.0); MCV 99.7 fL (80.0-100.0); Mean Platelet Volume 7.3; Monocytes # (A) 0.5 k/uL (0-1.0); Monocytes % (A) 6 %; Neutrophils % (A) 66 %; Platelet Count 221 k/uL (150-450); RBC 4.17 m/uL (4.30-5.90); RDW 13.5 % (11.5-15.5); WBC 7.7 k/uL (3.8-10.6)
[2019-03-02 07:25] LABS: ALT 31 U/L (21-72); AST 40 U/L (17-59); African American GFR (CKD) >90 (>60 ml/min/1.73 sqM); Albumin 3.6 g/dL (3.5-5.0); Alkaline Phosphatase 69 U/L (38-126); Anion Gap 4 mmol/L; Blood Urea Nitrogen 13 mg/dL (9-20); Calcium 8.7 mg/dL (8.4-10.2); Carbon Dioxide 28 mmol/L (22-30); Chloride 104 mmol/L (98-107); Glucose 79 mg/dL (74-99); Potassium 4.1 mmol/L (3.5-5.1); Sodium 136 mmol/L (137-145); Total Bilirubin 0.7 mg/dL (0.2-1.3); Total Protein 6.4 g/dL (6.3-8.2)
[2019-03-02] MEDS: NICOTINE 21MG/24HR PATCH TRANSDERM SCH (08:02)
[2019-03-02] MEDS: THIAMINE 100 MG TAB PO SCH (08:03)
[2019-03-02] MEDS: levETIRAcetam 500 MG TAB PO SCH (08:03)
[2019-03-02] MEDS ORDERED: MULTIVITAMINS, THERA 1 EACH TAB PO SCH (09:00)
[2019-03-02] MEDS ORDERED: LORazepam 0.5 MG TAB PO PRN (10:35)
--- NOTE | 2019-03-02 10:40 | P.DS ---
Providers Date of admission: 03/01/19 02:40 Expected date of discharge: 03/02/19 Attending physician: Annmarie Thibodeaux Primary care physician: Annmarie Thibodeaux [place] [facility] Course: Diagnoses on discharge: #1 alcohol intoxication with early alcohol withdrawal #2 underlying history of seizure disorder #3 tobacco abuse #4 history of closed head injury with subsequence psychosocial debility Hospital course: Kimo Briceño is a 54-year-old male who was found unconscious and was brought in to [facility] emergency room he had evidence of alcohol intoxication, his alcohol level was 264 he was started on CIWA protocol and was admitted to medical floor for further evaluation and treatment. Patient denies having any symptoms there is no fever or chills no headache or dizziness no chest pain no shortness of breath no cough no nausea or vomiting no abdominal pain no diarrhea no burning was urination no frequency or urgency and no hematuria. He has a known history of seizure disorder for which she is maintained on Keppra he denies any recent seizures. On 03/02/2019 patient was seen and examined on the medical floor he is alert and oriented 3 in no apparent distress he is feeling better no evidence of tremors or agitation he is feeling ready to be discharged home, he is denying any symptoms at this time. Patient was discharged home he was given a prescription for Ativan 0.5 mg by mouth every 6 hours when necessary for tremors or agitation he was told to follow-up in our office in 2-3 days. Patient Condition at Discharge: Fair Plan - Discharge Summary Discharge Rx Participant: Yes New Discharge Prescriptions: New LORazepam [Ativan] 0.5 mg PO Q6HR PRN tab PRN Reason: Agitation Continue levETIRAcetam [Keppra] 500 mg PO Q12HR Discharge Medication List levETIRAcetam [Keppra] 500 mg PO Q12HR 05/31/18 [History] LORazepam [Ativan] 0.5 mg PO Q6HR PRN tab 03/02/19 [Rx] Follow up Appointment(s)/Referral(s): Annmarie Thibodeaux MD [Primary Care Provider] - 1-2 days
== END 2019-03-02 14:15 | disposition home or self-care (01) ==
LOC: EC 23:08 → 4SSUR 03-01 02:40
PROVIDERS: ADMIT Internal Medicine; ATTEND Internal Medicine
DX: F10.229 Alcohol dependence with intoxication, unspecified (principal); F10.239 Alcohol dependence with withdrawal, unspecified; G40.909 Epilepsy, unspecified, not intractable, without status epilepticus; F17.200 Nicotine dependence, unspecified, uncomplicated; Z87.828 Personal history of other (healed) physical injury and trauma; Y90.8 Blood alcohol level of 240 mg/100 ml or more; F41.9 Anxiety disorder, unspecified; F32.9 Major depressive disorder, single episode, unspecified; Z79.899 Other long term (current) drug therapy; Z59.0 Homelessness
CPT/HCPCS: 96360; 99285; 36415; 80053; 80048; 82150; 83690; 83735; 85025 ×2; G0378 ×2; G0480; S4990 ×2; 80320

== ENCOUNTER → 2019-03-13 | Outpatient (CLI) | payer OTHER ==
--- NOTE | 2019-03-13 12:58 | US ---
EXAMINATION TYPE: US carotid duplex BILAT DATE OF EXAM: 03/13/2019 COMPARISON: NONE CLINICAL HISTORY: Z86.73 history of stroke. Patient states having seizures. Hx TIA. EXAM MEASUREMENTS: RIGHT: Peak Systolic Velocity (PSV) cm/sec ----- Right CCA: 73.2 ----- Right ICA: 81.7 ----- Right ECA: 81.7 ICA/CCA ratio: 1.1 RIGHT: End Diastole cm/sec ----- Right CCA: 20.4 ----- Right ICA: 31.1 ----- Right ECA: 15.4 LEFT: Peak Systolic Velocity (PSV) cm/sec ----- Left CCA: 72.1 ----- Left ICA: 84.0 ----- Left ECA: 68.0 ICA/CCA ratio: 1.2 LEFT: End Diastole cm/sec ----- Left CCA: 24.1 ----- Left ICA: 29.6 ----- Left ECA: 17.5 VERTEBRALS (direction of flow): Right Vertebral: Antegrade Left Vertebral: Antegrade Rhythm: Normal No elevated velocities or significant stenosis. Bilateral wall thickening. Plaque seen in left bul b. IMPRESSION: Mild degree of grayscale atheromatous plaquing with no sonographically evident hemodynam ically significant stenosis within either visualized carotid arterial system. Criteria for Assigning % of Stenosis / Diameter reduction (Estimation based on the indirect measurements of the internal carotid artery velocities (ICA PSV). 1. Normal (no stenosis)=ICA PSV < 125 cm/s: ratio < 2.0: ICA EDV<40 cm/s. 2. Less than 50% stenosis=ICA PSV < 125 cm/s: ratio < 2.0: ICA EDV<40 cm/s. 3. 50 to 69% stenosis=ICA PSV of 125 to 230 cm/s: ration 2.0 ? 4.0: ICA EDV 40-100 cm/s. 4. Greater than 70% stenosis to near occlusion= ICA PSV > 230 cm/s: ratio > 4.0: ICA EDV > 100 cm/s. 5. Near occlusion= ICA PSV velocities may be low or undetectable: variable ratio and ICA EDV. 6. Total occlusion=unable to detect flow.
--- NOTE | 2019-03-14 14:07 | ECHOF ---
Referral Reason:Z86.73 history of stroke MEASUREMENTS -------- HEIGHT: 180.3 cm WEIGHT: 63.5 kg BP: IVSd: 1.2 cm (0.6 - 1.1) LVIDd: 3.2 cm (3.9 - 5.3) LVPWd: 1.5 cm (0.6 - 1.1) IVSs: 1.3 cm LVIDs: 2.3 cm LVPWs: 1.4 cm LA Diam: 3.0 cm (2.7 - 3.8) LAESV Index (A-L): 28.39 ml/m Ao Diam: 2.7 cm (2.0 - 3.7) AV Cusp: 2.1 cm (1.5 - 2.6) LA Diam: 3.4 cm (2.7 - 3.8) MV EXCURSION: 16.920 mm (> 18.000) MV EF SLOPE: 107 mm/s (70 - 150) EPSS: 0.3 cm MV E Curt: 0.63 m/s MV DecT: 199 ms MV A Curt: 0.57 m/s MV E/A Ratio: 1.11 RAP: 5.00 mmHg RVSP: 19.00 mmHg TAPSE: 21.76 mm FINDINGS -------- Sinus rhythm. This was a technically good study. The left ventricular size is normal. There is borderline concentric left ventricular hypertrophy. Overall left ventricular systolic function is normal with, an EF between 55 - 60 %. The diastolic filling pattern is normal for the age of the patient 5.81. The right ventricle is normal in size. The left atrial size is normal. The right atrial size is normal. There is mild aortic valve sclerosis. There is no evidence of aortic regurgitation. Mild mitral annular calcification present. Mild mitral regurgitation is present. Mild tricuspid regurgitation present. Right ventricular systolic pressure is normal at < 35 mmHg. There is no evidence of pulmonary hypertension. There is no pulmonic regurgitation present. The aortic root size is normal. There is no pericardial effusion. CONCLUSIONS -------- 1. Sinus rhythm. 2. This was a technically good study. 3. The left ventricular size is normal. 4. There is borderline concentric left ventricular hypertrophy. 5. Overall left ventricular systolic function is normal with, an EF between 55 - 60 %. 6. The diastolic filling pattern is normal for the age of the patient 5.81 7. The right ventricle is normal in size. 8. The left atrial size is normal. 9. The right atrial size is normal. 10. There is mild aortic valve sclerosis. 11. Mild mitral annular calcification present. 12. Mild mitral regurgitation is present. 13. Mild tricuspid regurgitation present. 14. Right ventricular systolic pressure is normal at < 35 mmHg. 15. There is no evidence of pulmonary hypertension. 16. There is no pulmonic regurgitation present. 17. The aortic root size is normal. 18. There is no pericardial effusion. MARSHMALLOW MAKER: Radha Hernandez RDCS
== END | disposition home or self-care (01) ==
LOC: RADECHMAIN 11:28
PROVIDERS: ATTEND Psychiatry & Neurology Neurology
DX: I65.23 Occlusion and stenosis of bilateral carotid arteries (principal); I08.1 Rheumatic disorders of both mitral and tricuspid valves; Z86.73 Personal history of transient ischemic attack (TIA), and cerebral infarction without residual deficits
CPT/HCPCS: 93306; 93880

== ENCOUNTER → 2019-04-26 | Outpatient (CLI) | payer OTHER | END | disposition home or self-care (01) | LOC: LABWHC1 11:37 | PROVIDERS: ATTEND Psychiatry & Neurology Neurology | DX: G40.909 Epilepsy, unspecified, not intractable, without status epilepticus (principal) | CPT/HCPCS: 36415; 80164; 84450; 84460 ==

== ENCOUNTER 2019-07-31 15:26 | Emergency (ER) | payer OTHER ==
[2019-07-31 15:39] VITALS: RESP 18; TEMP 97.5
[2019-07-31 16:16] LABS: Basophils % (A) 0 %; Eosinophils # (A) 0.2 k/uL (0-0.7); Eosinophils % (A) 3 %; HCT 42.6 % (39.0-53.0); HGB 14.2 gm/dL (13.0-17.5); Lymphocytes # (A) 2.6 k/uL (1.0-4.8); Lymphocytes % (A) 30 %; MCH 32.6 pg (25.0-35.0); MCHC 33.3 g/dL (31.0-37.0); MCV 97.8 fL (80.0-100.0); Mean Platelet Volume 8.2; Monocytes # (A) 0.5 k/uL (0-1.0); Monocytes % (A) 6 %; Neutrophils # (A) 5.1 k/uL (1.3-7.7); Neutrophils % (A) 60 %; Platelet Count 217 k/uL (150-450); RBC 4.36 m/uL (4.30-5.90); RDW 11.8 % (11.5-15.5); WBC 8.6 k/uL (3.8-10.6)
[2019-07-31 16:24] LABS: African American GFR (CKD) >90 (>60 ml/min/1.73 sqM); Alcohol <10 mg/dL; Anion Gap 11 mmol/L; Blood Urea Nitrogen 17 mg/dL (9-20); Calcium 9.4 mg/dL (8.4-10.2); Carbon Dioxide 23 mmol/L (22-30); Chloride 102 mmol/L (98-107); Glucose 102 mg/dL (74-99); Magnesium 1.9 mg/dL (1.6-2.3); Non-African American GFR(CKD) >90 (>60 ml/min/1.73 sqM); Potassium 4.2 mmol/L (3.5-5.1); Sodium 136 mmol/L (137-145)
--- NOTE | 2019-07-31 16:31 | ED ---
General Adult HPI - General Chief complaint: Seizure Stated complaint: seizure Time Seen by Provider: 07/31/19 15:49 Source: patient, EMS, RN notes reviewed, old records reviewed Mode of arrival: EMS Limitations: no limitations - History of Present Illness Initial comments: 54-year-old male presents with suspected seizure, unwitnessed. Patient has hist ory of alcoholism and seizures. He was brought in by EMS, with mild confusion, suspect postictal. He states he's been having Seizures weekly. He was at the bus stop when this occurred today. He denies head or neck pain. He states he fell on Sunday with a seizure which was 4 days prior and had some minor head trauma at that time. Denies any nausea vomiting or diarrhea. Denies chest pain or dyspnea. Denies focal numbness or weakness. Uncertain if He is on any antiepileptic medication. - Related Data Home Medications Medication Instructions Recorded Confirmed levETIRAcetam [Keppra] 500 mg PO Q12HR 05/31/18 02/28/19 Previous Rx's Medication Instructions Recorded LORazepam [Ativan] 0.5 mg PO Q6HR PRN tab 03/02/19 Allergies Allergy/AdvReac Type Severity Reaction Status Date / Time No Known Allergies Allergy Verified 02/28/19 23:29 Review of Systems ROS Statement: Those systems with pertinent positive or pertinent negative responses have been documented in the HPI. ROS Other: All systems not noted in ROS Statement are negative. Past Medical History Past Medical History: Seizure Disorder Additional Past Medical History / Comment(s): alcoholism History of Any Multi-Drug Resistant Organisms: None Reported Past Surgical History: Orthopedic Surgery Past Psychological History: Anxiety, Depression Smoking Status: Current every day smoker Past Alcohol Use History: Occasional Past Drug Use History: Marijuana General Exam Limitations: no limitations General appearance: alert, in no apparent distress Head exam: Present: atraumatic, normocephalic Eye exam: Present: normal appearance, PERRL ENT exam: Present: normal exam Neck exam: Present: normal inspection. Absent: tenderness, meningismus Respiratory exam: Present: normal lung sounds bilaterally. Absent: respiratory distress, wheezes Cardiovascular Exam: Present: regular rate, normal rhythm GI/Abdominal exam: Present: soft. Absent: distended, tenderness, guarding Extremities exam: Present: normal inspection, normal capillary refill. Absent: pedal edema Back exam: Present: normal inspection Neurological exam: Present: alert, oriented X3, CN II-XII intact. Absent: motor sensory deficit Psychiatric exam: Present: normal affect, normal mood Skin exam: Present: warm, dry, intact. Absent: cyanosis, diaphoretic, erythema Course Vital Signs 07/31/19 07/31/19 15:32 15:51 Temperature 97.5 F L Pulse Rate 88 62 Respiratory 18 Rate Blood Pressure 119/73 O2 Sat by Pulse 98 Oximetry EKG Findings - EKG Comments: EKG Findings:: EKG: Normal sinus rhythm, rate of 63, HI interval 164, QRS duration 90, QTC 388, no ST segment elevation Medical Decision Making - Medical Decision Making 54-year-old male presenting with recurrent seizure history of seizures. Patient denies current alcohol use. He states he's having several seizures weekly. He has good neurology follow-up and reports she's been compliant with his antiepileptics. There was head trauma, head CT is performed which is negative for itch cream hemorrhage or mass effect. CT cervical spine was performed which is negative for fracture subluxation, chronic changes with no acute process. Patient has normal CBC, normal CMP, normal electrolytes. His EKG is sinus rhythm. He is given a dose Keppra in the emergency department. He is very eager for discharge and states he does have follow-up with his neurologist. He does not drive. - Lab Data Result diagrams: 07/31/19 16:00 07/31/19 16:00 Lab Results 07/31/19 07/31/19 07/31/19 Range/Units 16:00 16:00 16:00 WBC 8.6 (3.8-10.6) k/uL RBC 4.36 (4.30-5.90) m/uL Hgb 14.2 (13.0-17.5) gm/dL Hct 42.6 (39.0-53.0) % MCV 97.8 (80.0-100.0) fL MCH 32.6 (25.0-35.0) pg MCHC 33.3 (31.0-37.0) g/dL RDW 11.8 (11.5-15.5) % Plt Count 217 (150-450) k/uL Neutrophils % 60 % Lymphocytes % 30 % Monocytes % 6 % Eosinophils % 3 % Basophils % 0 % Neutrophils # 5.1 (1.3-7.7) k/uL Lymphocytes # 2.6 (1.0-4.8) k/uL Monocytes # 0.5 (0-1.0) k/uL Eosinophils # 0.2 (0-0.7) k/uL Basophils # 0.0 (0-0.2) k/uL PT 10.5 (9.0-12.0) sec INR 1.0 (<1.2) APTT 22.5 (22.0-30.0) sec Sodium 136 L (137-145) mmol/L Potassium 4.2 (3.5-5.1) mmol/L Chloride 102 (98-107) mmol/L Carbon Dioxide 23 (22-30) mmol/L Anion Gap 11 mmol/L BUN 17 (9-20) mg/dL Creatinine 0.72 (0.66-1.25) mg/dL Est GFR (CKD-EPI)AfAm >90 (>60 ml/min/1.73 sqM) Est GFR (CKD-EPI)NonAf >90 (>60 ml/min/1.73 sqM) Glucose 102 H (74-99) mg/dL Calcium 9.4 (8.4-10.2) mg/dL Magnesium 1.9 (1.6-2.3) mg/dL Serum Alcohol <10 mg/dL Disposition Clinical Impression: Generalized seizure Disposition: HOME SELF-CARE Condition: Fair Instructions (If sedation given, give patient instructions): Recurrent Seizures in Adults (ED) Is patient prescribed a controlled substance at d/c from ED?: No Referrals: Abhishek Vergara MD [Primary Care Provider] - 1-2 days Yeimi Granda MD [STAFF PHYSICIAN] - 1-2 days Time of Disposition: 17:17
--- NOTE | 2019-07-31 16:32 | CT ---
EXAMINATION TYPE: CT brain tl wo con DATE OF EXAM: 07/31/2019 COMPARISON: 05/31/2018 HISTORY: Seizure CT DLP: 1340.4 mGycm, Automated exposure control for dose reduction was used. CONTRAST: Patient injected with 0 mL of Isovue 300. CT of the brain is performed utilizing 3 mm thick sections through the posterior fossa and 3 mm thick sections through the remaining calvarium. Study is performed within 24 hours of arrival to the hospital. No abnormal hyperdensity is present to suggest an acute intracranial hemorrhage. No mass lesion is evident. No acute infarcts are evident. There appears to be some posttraumatic encephalomalacia of the right frontal lobe. This was present previously and appears stable. No suspicious new intracranial process is evident. Ventricles and sulci are appropriate for the patient age. Paranasal sinuses and mastoid air cells within the [id number] are clear. IMPRESSIONS: 1. There appear to be encephalomalacia changes right frontal lobe which are stable from 2018. 2. No acute intracranial process. CT cervical spine. COMPARISON: None CT of the cervical spine is performed in the axial plane at 2 mm thick sections. Reconstructed image s in the coronal, and sagittal plane are reviewed on the computer. No acute fractures are evident. There is straightening of the the vertebral bodies. There is loss of disc height C3-4, C4-5, C5-6 and to a lesser degree C6-7. Posterior endplate spurrin g is present C3-4, C4-5, C5-6. No spinal canal stenosis is present. Uncovertebral joint hypertrophy i s present, greater on the right with mild foraminal narrowing. Findings appear greatest at this C5-6 foramen which appears severely narrowed and more moderate narrowing at C4-5 and left C6-7. Vertebral body heights are preserved. No spinal canal stenosis is evident. IMPRESSIONS: 1. Degenerative disc changes with foraminal narrowing due to uncovertebral joint hypertrophy. 2. No acute osseous abnormality.
[2019-07-31 16:35] LABS: Partial Thromboplastin Time 22.5 sec (22.0-30.0); Prothrombin Time 10.5 sec (9.0-12.0)
[2019-07-31] MEDS ORDERED: levETIRAcetam IV 1,000 MG in SALINE 1 100ML.BAG IVPB STA (17:06)
[2019-07-31 17:47] VITALS: BP 120/80; PULSE 65
== END 2019-07-31 17:46 | disposition home or self-care (01) ==
LOC: EC 15:26
DX: G40.409 Other generalized epilepsy and epileptic syndromes, not intractable, without status epilepticus (principal); S09.90XA Unspecified injury of head, initial encounter; F10.21 Alcohol dependence, in remission; F17.200 Nicotine dependence, unspecified, uncomplicated; Z79.899 Other long term (current) drug therapy; W19.XXXA Unspecified fall, initial encounter; Y92.89 Other specified places as the place of occurrence of the external cause
CPT/HCPCS: 36415; 93005; 80048; 83735; 85025; 85610; 85730; 72125; 70450; 99285; 96374; G0480; J1953; 80320

== ENCOUNTER → 2019-08-18 | Outpatient (CLI) | payer OTHER ==
[2019-08-18 12:57] LABS: Basophils # (A) 0.1 k/uL (0-0.2); Basophils % (A) 1 %; Eosinophils # (A) 0.4 k/uL (0-0.7); Eosinophils % (A) 4 %; HCT 47.3 % (39.0-53.0); HGB 15.6 gm/dL (13.0-17.5); Lymphocytes # (A) 2.6 k/uL (1.0-4.8); Lymphocytes % (A) 31 %; MCV 100.2 fL (80.0-100.0); Mean Platelet Volume 8.5; Monocytes # (A) 0.4 k/uL (0-1.0); Monocytes % (A) 5 %; Neutrophils # (A) 4.8 k/uL (1.3-7.7); Neutrophils % (A) 57 %; Platelet Count 219 k/uL (150-450); RBC 4.72 m/uL (4.30-5.90); RDW 11.7 % (11.5-15.5); WBC 8.4 k/uL (3.8-10.6)
[2019-08-18 21:23] LABS: Valproic Acid (Depakene) 67.9 ug/mL (50.0-100.0)
== END | disposition home or self-care (01) ==
LOC: LABWHC1 10:49
PROVIDERS: ATTEND Psychiatry & Neurology Neurology
DX: G40.909 Epilepsy, unspecified, not intractable, without status epilepticus (principal)
CPT/HCPCS: 36415; 80164; 84450; 84460; 85025

== ENCOUNTER 2019-11-20 07:30 | Emergency (ER) | payer OTHER ==
[2019-11-20] MEDS ORDERED: SODIUM CHLORIDE 0.9% 1,000 ML IV ONE (07:38)
--- NOTE | 2019-11-20 07:41 | ED ---
General Adult HPI - General Chief complaint: Recheck/Abnormal Lab/Rx Stated complaint: Hypertension Time Seen by Provider: 11/20/19 07:37 Source: patient, EMS, RN notes reviewed, old records reviewed Mode of arrival: EMS Limitations: no limitations - History of Present Illness Initial comments: 54-year-old male history of alcoholism, hypertension, seizure history presenting with chief complaint of left knee pain, headache. Patient had been out in the rain and cold weather all night. He states he had had several drinks of alcohol and went for a walk, he fell and injured his left knee. He states he just laid down and slept outside for the remainder of the night. He does admit to alcohol abuse. He is additionally complaining of a frontal headache. He denies significant head trauma with this fall. He denies neck pain. Denies chest or abdominal pain. EMS had transported patient for evaluation. He was found to have a temperature of 96 by EMS. - Related Data Home Medications Medication Instructions Recorded Confirmed Divalproex ER [Depakote ER] 2,000 mg PO DAILY 11/20/19 11/20/19 Escitalopram [Lexapro] 20 mg PO DAILY 11/20/19 11/20/19 Metoprolol Tartrate [Lopressor] 50 mg PO BID 11/20/19 11/20/19 Allergies Allergy/AdvReac Type Severity Reaction Status Date / Time No Known Allergies Allergy Verified 02/28/19 23:29 Review of Systems ROS Statement: Those systems with pertinent positive or pertinent negative responses have been documented in the HPI. ROS Other: All systems not noted in ROS Statement are negative. Past Medical History Past Medical History: Seizure Disorder Additional Past Medical History / Comment(s): alcoholism History of Any Multi-Drug Resistant Organisms: None Reported Past Surgical History: Orthopedic Surgery Past Psychological History: Anxiety, Depression Smoking Status: Current every day smoker Past Alcohol Use History: Occasional Past Drug Use History: Marijuana General Exam Limitations: no limitations General appearance: alert, in no apparent distress Head exam: Present: atraumatic, normocephalic Eye exam: Present: normal appearance, PERRL, EOMI ENT exam: Present: mucous membranes dry Neck exam: Present: normal inspection, full ROM. Absent: tenderness, meningismus Respiratory exam: Present: normal lung sounds bilaterally. Absent: respiratory distress, wheezes, rales Cardiovascular Exam: Present: regular rate, normal rhythm GI/Abdominal exam: Present: soft. Absent: distended, tenderness, guarding Extremities exam: Present: normal inspection, full ROM, normal capillary refill. Absent: joint swelling, calf tenderness Neurological exam: Present: alert, oriented X3, CN II-XII intact. Absent: motor sensory deficit Psychiatric exam: Present: normal affect, normal mood Skin exam: Present: pallor. Absent: cyanosis, diaphoretic Course Vital Signs 11/20/19 11/20/19 11/20/19 07:33 07:48 08:00 Temperature 97.9 F Pulse Rate 99 89 87 Respiratory 16 16 Rate Blood Pressure 171/133 O2 Sat by Pulse 100 100 99 Oximetry 11/20/19 11/20/19 11/20/19 08:50 09:08 10:06 Temperature Pulse Rate 91 94 101 H Respiratory 16 16 20 Rate Blood Pressure 166/103 159/109 149/103 O2 Sat by Pulse 99 99 Oximetry 11/20/19 11:10 Temperature Pulse Rate 103 H Respiratory 16 Rate Blood Pressure 137/94 O2 Sat by Pulse 100 Oximetry - Reevaluation(s) Reevaluation #1: 11/20/19 11:32 Patient reevaluated, resting comfortably, eager for discharge, clinically sober. Medical Decision Making - Medical Decision Making 54-year-old male presenting with alcohol intoxication, minor fall, and hypo thermia from exposure. Patient is given supportive care in the emergency department, IV fluids, and warm blankets. His temperature is 97.9 which is normal. He has a normal CBC with mild from cytopenia. Electrolytes show hyponatremia, and a CO2 of 18 likely secondary to alcohol intoxication. His alcohol is 170. CT brain shows chronic changes with no acute process. X-ray of the left knee is negative for fracture dislocation. Patient is able to eat and drink in the emergency department. He is observed until he is sober and discharged home. He is encouraged to discontinue excessive alcohol consumption. He does have a home. - Lab Data Result diagrams: 11/20/19 07:45 11/20/19 09:20 Lab Results 11/20/19 11/20/19 Range/Units 07:45 09:20 WBC 6.9 (3.8-10.6) k/uL RBC 4.71 (4.30-5.90) m/uL Hgb 15.9 (13.0-17.5) gm/dL Hct 45.9 (39.0-53.0) % MCV 97.5 (80.0-100.0) fL MCH 33.7 (25.0-35.0) pg MCHC 34.5 (31.0-37.0) g/dL RDW 12.9 (11.5-15.5) % Plt Count 123 L (150-450) k/uL Neutrophils % 81 % Lymphocytes % 12 % Monocytes % 5 % Eosinophils % 1 % Basophils % 0 % Neutrophils # 5.6 (1.3-7.7) k/uL Lymphocytes # 0.8 L (1.0-4.8) k/uL Monocytes # 0.3 (0-1.0) k/uL Eosinophils # 0.1 (0-0.7) k/uL Basophils # 0.0 (0-0.2) k/uL Sodium 131 L (137-145) mmol/L Potassium 4.7 (3.5-5.1) mmol/L Chloride 95 L (98-107) mmol/L Carbon Dioxide 18 L (22-30) mmol/L Anion Gap 18 mmol/L BUN 14 (9-20) mg/dL Creatinine 0.54 L (0.66-1.25) mg/dL Est GFR (CKD-EPI)AfAm >90 (>60 ml/min/1.73 sqM) Est GFR (CKD-EPI)NonAf >90 (>60 ml/min/1.73 sqM) Glucose 61 L (74-99) mg/dL Calcium 7.9 L (8.4-10.2) mg/dL Serum Alcohol 167 mg/dL Disposition Clinical Impression: Alcoholic intoxication, Contusion, knee Disposition: HOME SELF-CARE Condition: Fair Instructions (If sedation given, give patient instructions): Alcohol Intoxication (ED), Contusion in Adults (ED) Is patient prescribed a controlled substance at d/c from ED?: No Referrals: Nonstaff,Physician [Primary Care Provider] - 1-2 days Time of Disposition: 12:05
[2019-11-20 08:03] LABS: Basophils % (A) 0 %; Eosinophils # (A) 0.1 k/uL (0-0.7); Eosinophils % (A) 1 %; HCT 45.9 % (39.0-53.0); HGB 15.9 gm/dL (13.0-17.5); Lymphocytes # (A) 0.8 k/uL (1.0-4.8); Lymphocytes % (A) 12 %; MCH 33.7 pg (25.0-35.0); MCHC 34.5 g/dL (31.0-37.0); MCV 97.5 fL (80.0-100.0); Mean Platelet Volume 8.4; Monocytes # (A) 0.3 k/uL (0-1.0); Monocytes % (A) 5 %; Neutrophils # (A) 5.6 k/uL (1.3-7.7); Neutrophils % (A) 81 %; Platelet Count 123 k/uL (150-450); RBC 4.71 m/uL (4.30-5.90); RDW 12.9 % (11.5-15.5); WBC 6.9 k/uL (3.8-10.6)
--- NOTE | 2019-11-20 08:37 | CT ---
EXAMINATION TYPE: CT brain wo con DATE OF EXAM: 11/20/2019 COMPARISON: 07/31/2019 HISTORY: 54-year-old male with pain after Fall TECHNIQUE: Examination was done in axial plane without intravenous contrast. Coronal and sagittal r econstructions performed. CT DLP: 1098.4 mGycm Automated exposure control for dose reduction was used. FINDINGS: There is no evidence of acute intracranial hemorrhage, acute ischemic changes, mass, mass-effect, or extra-axial fluid collection. There is no effacement of cerebral sulci or basal subarachnoid cister ns. There is no hydrocephalus. There is no midline shift. Vivas-white matter distinction is preserv ed. Old areas of encephalomalacia inferior right frontal lobe and anterior right frontal lobe. Paranasal sinuses and mastoid air cells are well pneumatized. Orbits and globes show no gross abnorma lity. 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 No acute intracranial abnormality seen.
--- NOTE | 2019-11-20 08:44 | XR ---
EXAMINATION TYPE: XR knee complete LT DATE OF EXAM: 11/20/2019 COMPARISON: None HISTORY: Pain fall TECHNIQUE: Three-view left knee FINDINGS: Joint spaces are preserved. Some calcification may be within the lateral meniscus. Medial t ibial plateau spurring is noted. No joint effusion is evident. Distal quadriceps tendon calcification may be present. There is prior surgical changes of the distal femur.. Follow-up exams can be performed 7-10 days from acute trauma for continued pain IMPRESSION: 1. No acute osseous abnormality.
[2019-11-20] MEDS ORDERED: ACETAMINOPHEN TAB 325 MG TAB PO STA (09:11)
[2019-11-20 09:41] LABS: African American GFR (CKD) >90 (>60 ml/min/1.73 sqM); Anion Gap 18 mmol/L; Blood Urea Nitrogen 14 mg/dL (9-20); Calcium 7.9 mg/dL (8.4-10.2); Carbon Dioxide 18 mmol/L (22-30); Chloride 95 mmol/L (98-107); Glucose 61 mg/dL (74-99); Non-African American GFR(CKD) >90 (>60 ml/min/1.73 sqM); Sodium 131 mmol/L (137-145)
[2019-11-20 09:49] LABS: Alcohol 167 mg/dL
[2019-11-20 09:50] LABS: Potassium 4.7 mmol/L (3.5-5.1)
[2019-11-20 11:10] VITALS: RESP 16
[2019-11-20 12:40] VITALS: BP 156/97; PULSE 85; TEMP 97.8
== END 2019-11-20 12:40 | disposition home or self-care (01) ==
LOC: EC 07:30
DX: S80.02XA Contusion of left knee, initial encounter (principal); F10.129 Alcohol abuse with intoxication, unspecified; T68.XXXA Hypothermia, initial encounter; E87.1 Hypo-osmolality and hyponatremia; D75.9 Disease of blood and blood-forming organs, unspecified; I10 Essential (primary) hypertension; G40.909 Epilepsy, unspecified, not intractable, without status epilepticus; F41.9 Anxiety disorder, unspecified; F32.9 Major depressive disorder, single episode, unspecified; F17.200 Nicotine dependence, unspecified, uncomplicated; Z79.899 Other long term (current) drug therapy; X31.XXXA Exposure to excessive natural cold, initial encounter; Y90.6 Blood alcohol level of 120-199 mg/100 ml
CPT/HCPCS: 99285; 36415; 80048; 85025; 73562; 70450; G0480; 80320

== ENCOUNTER 2019-12-14 11:46 | Emergency (ER) | payer OTHER ==
[2019-12-14 12:01] VITALS: RESP 18
[2019-12-14 12:21] LABS: Basophils # (A) 0.1 k/uL (0-0.2); Basophils % (A) 1 %; Eosinophils # (A) 0.2 k/uL (0-0.7); Eosinophils % (A) 3 %; HCT 41.3 % (39.0-53.0); HGB 13.6 gm/dL (13.0-17.5); Lymphocytes # (A) 0.8 k/uL (1.0-4.8); Lymphocytes % (A) 12 %; MCH 32.9 pg (25.0-35.0); MCHC 32.9 g/dL (31.0-37.0); MCV 100.1 fL (80.0-100.0); Mean Platelet Volume 7.9; Monocytes # (A) 0.2 k/uL (0-1.0); Monocytes % (A) 3 %; Neutrophils # (A) 5.2 k/uL (1.3-7.7); Neutrophils % (A) 81 %; Platelet Count 167 k/uL (150-450); RBC 4.13 m/uL (4.30-5.90); RDW 13.5 % (11.5-15.5); WBC 6.4 k/uL (3.8-10.6)
[2019-12-14] MEDS ORDERED: SODIUM CHLORIDE 0.9% 1,000 ML IV ONE (12:24)
[2019-12-14] MEDS ORDERED: ORPHENADRINE 30 MG/ML 2 ML VIAL IVP STA (12:24)
--- NOTE | 2019-12-14 12:28 | ED ---
General Adult HPI - General Chief complaint: Head Injury Stated complaint: Fall Time Seen by Provider: 12/14/19 11:53 Source: patient, RN notes reviewed, old records reviewed Mode of arrival: ambulatory Limitations: no limitations - History of Present Illness Initial comments: His is a 54-year-old male with history of ETOH use presents for discharge today for evaluation with complaints of head and neck pain after multiple falls after drinking on Sunday. Patient reports was walking to [facility] on a trail when he fell hitting his head on the front causing an abrasion on forehead and back of head. Patient reports that he may have lost consciousness, he is not sure. He drank multiple tall "Natty[employer]". He complains of some tailbone pain and right shoulder pain as well from fall. He reports that yesterday he stayed. He is continued to have worsening neck pain at the top of the neck and worse with range of motion and decided to come to the ER for evaluation. Patient is not on blood thinner. - Related Data Home Medications Medication Instructions Recorded Confirmed Divalproex ER [Depakote ER] 2,000 mg PO DAILY 11/20/19 11/20/19 Escitalopram [Lexapro] 20 mg PO DAILY 11/20/19 11/20/19 Metoprolol Tartrate [Lopressor] 50 mg PO BID 11/20/19 11/20/19 Allergies Allergy/AdvReac Type Severity Reaction Status Date / Time No Known Allergies Allergy Verified 12/14/19 11:57 Review of Systems ROS Statement: Those systems with pertinent positive or pertinent negative responses have been documented in the HPI. ROS Other: All systems not noted in ROS Statement are negative. Past Medical History Past Medical History: Seizure Disorder Additional Past Medical History / Comment(s): alcoholism History of Any Multi-Drug Resistant Organisms: None Reported Past Surgical History: Orthopedic Surgery Past Psychological History: Anxiety, Depression Smoking Status: Current every day smoker Past Alcohol Use History: Occasional Past Drug Use History: Marijuana General Exam - General Exam Comments Initial Comments: Alert and oriented 3 54-year-old male. Limitations: no limitations General appearance: alert, in no apparent distress Head exam: Present: atraumatic, normocephalic, normal inspection, other (Patient has large abrasions and scabbing over the right side of the forehead and posterior scalp.) Eye exam: Present: normal appearance, PERRL, EOMI. Absent: scleral icterus, conjunctival injection, periorbital swelling ENT exam: Present: normal exam, mucous membranes moist Neck exam: Present: normal inspection. Absent: tenderness, meningismus, lymphadenopathy Respiratory exam: Present: normal lung sounds bilaterally. Absent: respiratory distress, wheezes, rales, rhonchi, stridor Cardiovascular Exam: Present: regular rate, normal rhythm, normal heart sounds. Absent: systolic murmur, diastolic murmur, rubs, gallop, clicks GI/Abdominal exam: Present: soft, normal bowel sounds. Absent: distended, tenderness, guarding, rebound, rigid Extremities exam: Present: normal inspection, full ROM, normal capillary refill. Absent: tenderness, pedal edema, joint swelling, calf tenderness Back exam: Present: normal inspection Neurological exam: Present: alert, oriented X3, CN II-XII intact, normal gait Expanded Speech: Present: fluid speech Cranial nerves: EOM's Intact: Normal Cerebellar function: Heel to [place]: Normal Upper motor neuron: Pronator Drift: Normal Sensory exam: Upper Extremity Light Touch: Normal, Lower Extremity Light Touch: Normal Motor strength exam: RUE: 5, LUE: 5, RLE: 5, LLE: 5 Eye Response: (4) open spontaneously Motor Response: (6) obeys commands Verbal Response: (5) oriented [place] Total: 15 Psychiatric exam: Present: normal affect, normal mood Skin exam: Present: warm, dry, intact, normal color. Absent: rash Course Vital Signs 12/14/19 12/14/19 11:58 13:51 Temperature 98.6 F 98.3 F Pulse Rate 82 77 Respiratory 18 18 Rate Blood Pressure 180/107 173/96 O2 Sat by Pulse 97 99 Oximetry Medical Decision Making - Medical Decision Making 54-year-old male presents for his arms after multiple falls on Sunday evening after drinking alcohol. He fell on his head multiple times causing abrasions over the frontal and posterior scalp. Patient went to a headache and neck pain. On exam is no acute neurological deficits. He Does complain of some right shoulder pain. He has full range of motion of the shoulder at this time. Patient's CT of the brain was reviewed. There is evidence of a hyperdensity in the frontal cortex concern for petechial hemorrhage or skull calcification. With history of trauma his concern for hemorrhage. Discusses Dr. Peñaloza, whom recommends will transfer the Patient to [facility] for further evaluation. Discussed with Dr. Sanabria of [facility] emergency physician whom accepts transfer. Patient is agreeable to transfer. Patient was found to be hypertensive emergency department was given 10 mg of labetalol IV, morphine for pain and Norflex. - Lab Data Result diagrams: 12/14/19 12:10 12/14/19 12:10 Lab Results 12/14/19 12/14/19 12/14/19 Range/Units 12:10 12:10 12:10 WBC 6.4 (3.8-10.6) k/uL RBC 4.13 L (4.30-5.90) m/uL Hgb 13.6 (13.0-17.5) gm/dL Hct 41.3 (39.0-53.0) % MCV 100.1 H (80.0-100.0) fL MCH 32.9 (25.0-35.0) pg MCHC 32.9 (31.0-37.0) g/dL RDW 13.5 (11.5-15.5) % Plt Count 167 (150-450) k/uL Neutrophils % 81 % Lymphocytes % 12 % Monocytes % 3 % Eosinophils % 3 % Basophils % 1 % Neutrophils # 5.2 (1.3-7.7) k/uL Lymphocytes # 0.8 L (1.0-4.8) k/uL Monocytes # 0.2 (0-1.0) k/uL Eosinophils # 0.2 (0-0.7) k/uL Basophils # 0.1 (0-0.2) k/uL PT 13.4 H (9.0-12.0) sec INR 1.3 H (<1.2) APTT 22.4 (22.0-30.0) sec Sodium 137 (137-145) mmol/L Potassium 4.0 (3.5-5.1) mmol/L Chloride 101 (98-107) mmol/L Carbon Dioxide 26 (22-30) mmol/L Anion Gap 10 mmol/L BUN 15 (9-20) mg/dL Creatinine 0.61 L (0.66-1.25) mg/dL Est GFR (CKD-EPI)AfAm >90 (>60 ml/min/1.73 sqM) Est GFR (CKD-EPI)NonAf >90 (>60 ml/min/1.73 sqM) Glucose 124 H (74-99) mg/dL Plasma Lactic Acid Bartolo (0.7-2.0) mmol/L Calcium 9.0 (8.4-10.2) mg/dL Total Bilirubin 1.4 H (0.2-1.3) mg/dL AST 611 H (17-59) U/L ALT 385 H (4-49) U/L Alkaline Phosphatase 85 (38-126) U/L Troponin I (0.000-0.034) ng/mL Total Protein 7.0 (6.3-8.2) g/dL Albumin 4.3 (3.5-5.0) g/dL Amylase (30-110) U/L Lipase (23-300) U/L Serum Alcohol <10 mg/dL 12/14/19 12/14/19 12/14/19 Range/Units 12:10 12:10 12:10 WBC (3.8-10.6) k/uL RBC (4.30-5.90) m/uL Hgb (13.0-17.5) gm/dL Hct (39.0-53.0) % MCV (80.0-100.0) fL MCH (25.0-35.0) pg MCHC (31.0-37.0) g/dL RDW (11.5-15.5) % Plt Count (150-450) k/uL Neutrophils % % Lymphocytes % % Monocytes % % Eosinophils % % Basophils % % Neutrophils # (1.3-7.7) k/uL Lymphocytes # (1.0-4.8) k/uL Monocytes # (0-1.0) k/uL Eosinophils # (0-0.7) k/uL Basophils # (0-0.2) k/uL PT (9.0-12.0) sec INR (<1.2) APTT (22.0-30.0) sec Sodium (137-145) mmol/L Potassium (3.5-5.1) mmol/L Chloride (98-107) mmol/L Carbon Dioxide (22-30) mmol/L Anion Gap mmol/L BUN (9-20) mg/dL Creatinine (0.66-1.25) mg/dL Est GFR (CKD-EPI)AfAm (>60 ml/min/1.73 sqM) Est GFR (CKD-EPI)NonAf (>60 ml/min/1.73 sqM) Glucose (74-99) mg/dL Plasma Lactic Acid Bartolo 2.1 H* (0.7-2.0) mmol/L Calcium (8.4-10.2) mg/dL Total Bilirubin (0.2-1.3) mg/dL AST (17-59) U/L ALT (4-49) U/L Alkaline Phosphatase (38-126) U/L Troponin I <0.012 (0.000-0.034) ng/mL Total Protein (6.3-8.2) g/dL Albumin (3.5-5.0) g/dL Amylase 52 (30-110) U/L Lipase 54 (23-300) U/L Serum Alcohol mg/dL - Radiology Data Radiology results: report reviewed 1 mm hyperdensity in the medial frontal cortex. Although petechial hemorrhage cannot be excluded given his new from prior exam findings most likely a tiny calcification. Degenerative changes with multilevel degenerative disc disease and foraminal encroachment. Canal stenosis cannot be excluded. CT shows encephalomalacia of the right frontal lobe. Degenerative changes noted of greater frontal lobe component. Tiny subdural chronic hematoma versus hygroma is also differential. CT shows changes COPD was suggestion of a 7 mm upper lobe pulmonary nodule. Disposition Clinical Impression: Closed petechial hemorrhage of brain, ETOH abuse, Transaminitis, Shoulder pain, right, Fall, Neck pain Disposition: ADMITTED IP TO THIS [facility] Condition: Stable Is patient prescribed a controlled substance at d/c from ED?: No Referrals: Nonstaff,Physician [REFERRING] - 1-2 days Time of Disposition: 14:09
[2019-12-14] MEDS ORDERED: SODIUM CHLORIDE 0.9% 1,000 ML IV SCH (12:30)
[2019-12-14 12:35] LABS: ALT 385 U/L (4-49); AST 611 U/L (17-59); African American GFR (CKD) >90 (>60 ml/min/1.73 sqM); Albumin 4.3 g/dL (3.5-5.0); Alcohol <10 mg/dL; Alkaline Phosphatase 85 U/L (38-126); Anion Gap 10 mmol/L; Blood Urea Nitrogen 15 mg/dL (9-20); Carbon Dioxide 26 mmol/L (22-30); Chloride 101 mmol/L (98-107); Glucose 124 mg/dL (74-99); Non-African American GFR(CKD) >90 (>60 ml/min/1.73 sqM); Sodium 137 mmol/L (137-145); Total Bilirubin 1.4 mg/dL (0.2-1.3)
[2019-12-14 12:36] LABS: INR 1.3 (<1.2); Partial Thromboplastin Time 22.4 sec (22.0-30.0); Prothrombin Time 13.4 sec (9.0-12.0)
[2019-12-14 13:14] LABS: Amylase 52 U/L (30-110)
--- NOTE | 2019-12-14 13:14 | CT ---
EXAMINATION TYPE: CT brain cspine wo con DATE OF EXAM: 12/14/2019 COMPARISON: 11/20/2019, 07/31/2019 HISTORY: Fall with injury. CT DLP: 1343 mGycm Automated exposure control for dose reduction was used. TECHNIQUE: CT scan of the head and cervical spine are performed without contrast. FINDINGS: There is no evidence of acute intracranial hemorrhage, acute ischemic changes, mass, mass -effect, or extra-axial fluid collection. There is no effacement of cerebral sulci or basal subarachn oid cisterns. There is no hydrocephalus. There is no midline shift. Changes of chronic right mastoidi tis. There is a single 1 mm hyperdensity within the right frontal medial cortex. This prominence of the CS F spaces in the frontal lobes bilaterally. Mild generalized degenerative change. Old areas of encepha lomalacia inferior right frontal lobe and anterior right frontal lobe. Paranasal sinuses and mastoid air cells are well pneumatized. Orbits and globes show no gross abnormality. No acute fractures are evident. There is straightening of the the vertebral bodies. There is loss of disc height C3-4, C4-5, C5-6 and to a lesser degree C6-7. Posterior endplate spurring is present C3-4 , C4-5, C5-6. 2 mm anterolisthesis of C2 relative to C3. Multilevel facet arthropathy and uncovertebr al joint hypertrophy result in multilevel foraminal encroachment. Findings appear greatest at this C 5-6 foramen which appears severely narrowed and more moderate narrowing at C4-5 and left C6-7. Verteb ral body heights are preserved. No spinal canal stenosis is evident. Apical pleural thickening and emphysematous changes noted. There is a 7 mm apical pulmonary nodule. IMPRESSION: 1. There is a 1 mm hyperdensity in the medial right frontal cortex. Although a petechial hemorrhage c annot be excluded given it is new from the prior exam, the finding most likely is on the basis of a t iny calcification. Correlate clinically. 2. Degenerative changes with multilevel degenerative disc disease and foraminal encroachment. Canal s tenosis not excluded. 3. Encephalomalacia right frontal lobe stable. Degenerative changes noted of the greater frontal lobe component. Tiny subdural chronic hematoma or hygroma also in the differential diagnosis. 4. Changes of COPD with suggestion of a 7 mm upper lobe pulmonary nodule.
[2019-12-14] MEDS ORDERED: MORPHINE SULFATE 2 MG/ML SYRINGE IVP ONE (13:37)
[2019-12-14] MEDS ORDERED: LABETALOL 5 MG/ML VIAL MDV IVP STA (13:41)
[2019-12-14] MEDS ORDERED: NICOTINE 21MG/24HR PATCH TRANSDERM STA (14:03)
[2019-12-14] MEDS ORDERED: DIPH,PERTUS(ACELL)TETVAC-LF 0.5 ML VIAL IM ONE (14:11)
--- NOTE | 2019-12-14 14:11 | ED ---
Medical Decision Making - Medical Decision Making Addendum placed to change disposition for transfer. - Lab Data Result diagrams: 12/14/19 12:10 12/14/19 12:10 Lab Results 12/14/19 12/14/19 12/14/19 Range/Units 12:10 12:10 12:10 WBC 6.4 (3.8-10.6) k/uL RBC 4.13 L (4.30-5.90) m/uL Hgb 13.6 (13.0-17.5) gm/dL Hct 41.3 (39.0-53.0) % MCV 100.1 H (80.0-100.0) fL MCH 32.9 (25.0-35.0) pg MCHC 32.9 (31.0-37.0) g/dL RDW 13.5 (11.5-15.5) % Plt Count 167 (150-450) k/uL Neutrophils % 81 % Lymphocytes % 12 % Monocytes % 3 % Eosinophils % 3 % Basophils % 1 % Neutrophils # 5.2 (1.3-7.7) k/uL Lymphocytes # 0.8 L (1.0-4.8) k/uL Monocytes # 0.2 (0-1.0) k/uL Eosinophils # 0.2 (0-0.7) k/uL Basophils # 0.1 (0-0.2) k/uL PT 13.4 H (9.0-12.0) sec INR 1.3 H (<1.2) APTT 22.4 (22.0-30.0) sec Sodium 137 (137-145) mmol/L Potassium 4.0 (3.5-5.1) mmol/L Chloride 101 (98-107) mmol/L Carbon Dioxide 26 (22-30) mmol/L Anion Gap 10 mmol/L BUN 15 (9-20) mg/dL Creatinine 0.61 L (0.66-1.25) mg/dL Est GFR (CKD-EPI)AfAm >90 (>60 ml/min/1.73 sqM) Est GFR (CKD-EPI)NonAf >90 (>60 ml/min/1.73 sqM) Glucose 124 H (74-99) mg/dL Plasma Lactic Acid Bartolo (0.7-2.0) mmol/L Calcium 9.0 (8.4-10.2) mg/dL Total Bilirubin 1.4 H (0.2-1.3) mg/dL AST 611 H (17-59) U/L ALT 385 H (4-49) U/L Alkaline Phosphatase 85 (38-126) U/L Troponin I (0.000-0.034) ng/mL Total Protein 7.0 (6.3-8.2) g/dL Albumin 4.3 (3.5-5.0) g/dL Amylase (30-110) U/L Lipase (23-300) U/L Serum Alcohol <10 mg/dL 12/14/19 12/14/19 12/14/19 Range/Units 12:10 12:10 12:10 WBC (3.8-10.6) k/uL RBC (4.30-5.90) m/uL Hgb (13.0-17.5) gm/dL Hct (39.0-53.0) % MCV (80.0-100.0) fL MCH (25.0-35.0) pg MCHC (31.0-37.0) g/dL RDW (11.5-15.5) % Plt Count (150-450) k/uL Neutrophils % % Lymphocytes % % Monocytes % % Eosinophils % % Basophils % % Neutrophils # (1.3-7.7) k/uL Lymphocytes # (1.0-4.8) k/uL Monocytes # (0-1.0) k/uL Eosinophils # (0-0.7) k/uL Basophils # (0-0.2) k/uL PT (9.0-12.0) sec INR (<1.2) APTT (22.0-30.0) sec Sodium (137-145) mmol/L Potassium (3.5-5.1) mmol/L Chloride (98-107) mmol/L Carbon Dioxide (22-30) mmol/L Anion Gap mmol/L BUN (9-20) mg/dL Creatinine (0.66-1.25) mg/dL Est GFR (CKD-EPI)AfAm (>60 ml/min/1.73 sqM) Est GFR (CKD-EPI)NonAf (>60 ml/min/1.73 sqM) Glucose (74-99) mg/dL Plasma Lactic Acid Bartolo 2.1 H* (0.7-2.0) mmol/L Calcium (8.4-10.2) mg/dL Total Bilirubin (0.2-1.3) mg/dL AST (17-59) U/L ALT (4-49) U/L Alkaline Phosphatase (38-126) U/L Troponin I <0.012 (0.000-0.034) ng/mL Total Protein (6.3-8.2) g/dL Albumin (3.5-5.0) g/dL Amylase 52 (30-110) U/L Lipase 54 (23-300) U/L Serum Alcohol mg/dL Disposition Clinical Impression: Closed petechial hemorrhage of brain, ETOH abuse, Transaminitis, Shoulder pain, right, Fall, Neck pain Disposition: DC/TRNS INTERMEDIATE CARE FAC Condition: Stable Is patient prescribed a controlled substance at d/c from ED?: No Referrals: Nonstaff,Physician [REFERRING] - 1-2 days Time of Disposition: 14:09 - Out of Hospital Transfer - Req. Specs Out of Hospital Transfer - Requested Specifics: Other Emergency Center ([facility])
--- NOTE | 2019-12-14 14:39 | XR ---
EXAMINATION TYPE: XR chest 2V DATE OF EXAM: 12/14/2019 COMPARISON: NONE HISTORY: Pain TECHNIQUE: 2 views FINDINGS: Heart and mediastinum are normal. Lungs are clear. Diaphragm is normal. Bony thorax is inta ct. There are chest leads. IMPRESSION: Normal chest.
--- NOTE | 2019-12-14 14:40 | XR ---
EXAMINATION TYPE: XR shoulder complete RT DATE OF EXAM: 12/14/2019 COMPARISON: NONE HISTORY: Pain TECHNIQUE: 3 views FINDINGS: There is some narrowing and spurring at the glenohumeral joint. I see no fracture nor dislo cation. IMPRESSION: Osteoarthritis. No fracture seen.
[2019-12-14 17:36] VITALS: BP 137/89; PULSE 74; TEMP 98
== END 2019-12-14 14:46 ==
LOC: EC 11:46
DX: S00.01XA Abrasion of scalp, initial encounter (principal); S00.81XA Abrasion of other part of head, initial encounter; I10 Essential (primary) hypertension; F10.10 Alcohol abuse, uncomplicated; R23.3 Spontaneous ecchymoses; M54.2 Cervicalgia; M25.511 Pain in right shoulder; R74.0 Nonspecific elevation of levels of transaminase and lactic acid dehydrogenase [LDH]; G40.909 Epilepsy, unspecified, not intractable, without status epilepticus; F41.9 Anxiety disorder, unspecified; F32.9 Major depressive disorder, single episode, unspecified; F17.200 Nicotine dependence, unspecified, uncomplicated; Z79.899 Other long term (current) drug therapy; Y90.9 Presence of alcohol in blood, level not specified; W01.10XA Fall on same level from slipping, tripping and stumbling with subsequent striking against unspecified object, initial encounter; Y93.01 Activity, walking, marching and hiking; Y92.89 Other specified places as the place of occurrence of the external cause
CPT/HCPCS: 36415; 80053; 82150; 83605; 83690; 84484; 85025; 85610; 85730; 73030; 71046; 72125; 70450; 99285; 96374; 96375 ×2; 96361 ×5; G0480; S4990; J2360; J2270; 80320

== ENCOUNTER 2019-12-19 14:18 | Emergency (ER) | payer OTHER ==
[2019-12-19] MEDS ORDERED: ACETAMINOPHEN TAB 500 MG TAB PO STA (14:49)
--- NOTE | 2019-12-19 15:19 | ED ---
General Adult HPI - General Chief complaint: Headache Stated complaint: Headache Time Seen by Provider: 12/19/19 14:20 Source: patient, EMS, RN notes reviewed, old records reviewed Mode of arrival: EMS Limitations: no limitations - History of Present Illness Initial comments: This is a 54-year-old male who presents emergency Department complaining of a headache ever since he fell last Sunday. Patient had a shovel petechial hemorrhage and was transferred down [facility] where he was released yesterday. Patient states he woke up this morning the headache continued and he was concerned so he came back in. Patient states his been no n ew trauma. Patient denies any drinking. Patient denies any neck pain patient denies numbness weakness. - Related Data Home Medications Medication Instructions Recorded Confirmed Divalproex ER [Depakote ER] 2,000 mg PO DAILY 11/20/19 12/19/19 Escitalopram [Lexapro] 20 mg PO DAILY 11/20/19 12/19/19 Metoprolol Tartrate [Lopressor] 50 mg PO DAILY 11/20/19 12/19/19 Acetaminophen [Tylenol Arthritis] 650 - 1,300 mg PO Q8H PRN 12/19/19 12/19/19 Allergies Allergy/AdvReac Type Severity Reaction Status Date / Time No Known Allergies Allergy Verified 12/19/19 15:41 Review of Systems ROS Statement: Those systems with pertinent positive or pertinent negative responses have been documented in the HPI. ROS Other: All systems not noted in ROS Statement are negative. Past Medical History Past Medical History: Seizure Disorder Additional Past Medical History / Comment(s): alcoholism, brain bleed x 2 History of Any Multi-Drug Resistant Organisms: None Reported Past Surgical History: Orthopedic Surgery Past Psychological History: Anxiety, Depression Smoking Status: Current every day smoker Past Alcohol Use History: Occasional Past Drug Use History: Marijuana General Exam - General Exam Comments Initial Comments: GENERAL: Patient is well-developed and well-nourished. Patient is nontoxic and well- hydrated and is in mild distress. ENT: Neck is soft and supple. No significant lymphadenopathy is noted. Oropharynx is clear. Moist mucous membranes. Neck has full range of motion without eliciting any pain. EYES: The sclera were anicteric and conjunctiva were pink and moist. Extraocular movements were intact and pupils were equal round and reactive to light. Eyelids were unremarkable. PULMONARY: Unlabored respirations. Good breath sounds bilaterally. No audible rales rhonchi or wheezing was noted. CARDIOVASCULAR: There is a regular rate and rhythm without any murmurs gallops or rubs. ABDOMEN: Soft and nontender with normal bowel sounds. SKIN: Skin is clear with no lesions or rashes and otherwise unremarkable. NEUROLOGIC: Patient is alert and oriented x3. Cranial nerves II through XII are grossly intact. Motor and sensory are also intact. Normal speech, volume and content. Symmetrical smile. MUSCULOSKELETAL: Normal extremities with adequate strength and full range of motion. LYMPHATICS: No significant lymphadenopathy is noted PSYCHIATRIC: Normal psychiatric evaluation. Limitations: no limitations Course Vital Signs 12/19/19 14:20 Temperature 97.9 F Pulse Rate 73 Respiratory 18 Rate Blood Pressure 139/97 O2 Sat by Pulse 98 Oximetry Medical Decision Making - Medical Decision Making Computed tomography scan of the brain shows no acute abnormality. I will back into the room patient stated he was feeling little bit better and he'll follow-up with his primary medical care doctor. - Lab Data Result diagrams: 12/19/19 15:10 12/19/19 15:10 Lab Results 12/19/19 12/19/19 Range/Units 15:10 15:10 WBC 4.7 (3.8-10.6) k/uL RBC 3.74 L (4.30-5.90) m/uL Hgb 12.4 L (13.0-17.5) gm/dL Hct 37.4 L (39.0-53.0) % MCV 99.9 (80.0-100.0) fL MCH 33.2 (25.0-35.0) pg MCHC 33.2 (31.0-37.0) g/dL RDW 13.8 (11.5-15.5) % Plt Count 128 L (150-450) k/uL Neutrophils % 57 % Lymphocytes % 25 % Monocytes % 8 % Eosinophils % 6 % Basophils % 1 % Neutrophils # 2.7 (1.3-7.7) k/uL Lymphocytes # 1.2 (1.0-4.8) k/uL Monocytes # 0.4 (0-1.0) k/uL Eosinophils # 0.3 (0-0.7) k/uL Basophils # 0.0 (0-0.2) k/uL Sodium 133 L (137-145) mmol/L Potassium 3.9 (3.5-5.1) mmol/L Chloride 100 (98-107) mmol/L Carbon Dioxide 25 (22-30) mmol/L Anion Gap 8 mmol/L BUN 13 (9-20) mg/dL Creatinine 0.54 L (0.66-1.25) mg/dL Est GFR (CKD-EPI)AfAm >90 (>60 ml/min/1.73 sqM) Est GFR (CKD-EPI)NonAf >90 (>60 ml/min/1.73 sqM) Glucose 84 (74-99) mg/dL Calcium 9.0 (8.4-10.2) mg/dL Magnesium 1.9 (1.6-2.3) mg/dL Total Bilirubin 0.6 (0.2-1.3) mg/dL AST 71 H (17-59) U/L ALT 558 H (4-49) U/L Alkaline Phosphatase 80 (38-126) U/L Total Protein 6.1 L (6.3-8.2) g/dL Albumin 3.6 (3.5-5.0) g/dL Disposition Clinical Impression: Posttraumatic headache Disposition: HOME SELF-CARE Is patient prescribed a controlled substance at d/c from ED?: No Referrals: Abhishek Vergara MD [Primary Care Provider] - 1-2 days Time of Disposition: 15:43
[2019-12-19 15:22] LABS: Basophils % (A) 1 %; Eosinophils # (A) 0.3 k/uL (0-0.7); Eosinophils % (A) 6 %; HCT 37.4 % (39.0-53.0); HGB 12.4 gm/dL (13.0-17.5); Lymphocytes # (A) 1.2 k/uL (1.0-4.8); Lymphocytes % (A) 25 %; MCH 33.2 pg (25.0-35.0); MCHC 33.2 g/dL (31.0-37.0); MCV 99.9 fL (80.0-100.0); Mean Platelet Volume 8.8; Monocytes # (A) 0.4 k/uL (0-1.0); Monocytes % (A) 8 %; Neutrophils # (A) 2.7 k/uL (1.3-7.7); Neutrophils % (A) 57 %; Platelet Count 128 k/uL (150-450); RBC 3.74 m/uL (4.30-5.90); RDW 13.8 % (11.5-15.5); WBC 4.7 k/uL (3.8-10.6)
[2019-12-19 15:30] LABS: ALT 558 U/L (4-49); AST 71 U/L (17-59); African American GFR (CKD) >90 (>60 ml/min/1.73 sqM); Albumin 3.6 g/dL (3.5-5.0); Alkaline Phosphatase 80 U/L (38-126); Anion Gap 8 mmol/L; Blood Urea Nitrogen 13 mg/dL (9-20); Carbon Dioxide 25 mmol/L (22-30); Chloride 100 mmol/L (98-107); Glucose 84 mg/dL (74-99); Magnesium 1.9 mg/dL (1.6-2.3); Non-African American GFR(CKD) >90 (>60 ml/min/1.73 sqM); Potassium 3.9 mmol/L (3.5-5.1); Sodium 133 mmol/L (137-145); Total Bilirubin 0.6 mg/dL (0.2-1.3); Total Protein 6.1 g/dL (6.3-8.2)
--- NOTE | 2019-12-19 15:32 | CT ---
EXAMINATION TYPE: CT brain wo con DATE OF EXAM: 12/19/2019 COMPARISON: 12/14/2019 HISTORY: Right frontal injury [address] DLP: 1168.[address] of the brain was performed. The ventricles, basal cisterns and sulci overlying the cerebral convexities demonstrate mild enlargem ent. Remote insult and focal calcification right frontal lobe. There is no evidence for intracranial hemorrhage or sulcal effacement. There is prominence of the e xtra-axial spaces bilaterally which may reflect chronic subdural hygromas small in size. There is decreased attenuation about the periventricular white matter and deep white matter of both c erebral hemispheres, compatible with chronic small vessel ischemia. Differential diagnosis does inclu de demyelination. No mass effects are seen.No midline shift. Osseous calvarium is intact. Prior baldomero hole formation. If symptoms persist consider MRI. IMPRESSION: 1. Age related atrophic and chronic small vessel ischemic change without acute intracranial process s een at this time.There is prominence of the extra-axial spaces bilaterally which may reflect chronic subdural hygromas small in size versus prominent CSF spaces.
[2019-12-19 16:30] VITALS: BP 152/96; PULSE 78; RESP 17; TEMP 97.7
== END 2019-12-19 16:28 | disposition home or self-care (01) ==
LOC: EC 14:18
DX: G44.309 Post-traumatic headache, unspecified, not intractable (principal); G40.909 Epilepsy, unspecified, not intractable, without status epilepticus; F41.9 Anxiety disorder, unspecified; F32.9 Major depressive disorder, single episode, unspecified; F17.200 Nicotine dependence, unspecified, uncomplicated; Z79.899 Other long term (current) drug therapy; Z87.820 Personal history of traumatic brain injury
CPT/HCPCS: 36415; 70450; 80053; 83735; 85025; 99285

== ENCOUNTER → 2020-05-24 | Outpatient (CLI) | payer OTHER ==
[2020-05-24 16:01] LABS: Basophils % (A) 1 %; Eosinophils # (A) 0.2 k/uL (0-0.7); Eosinophils % (A) 2 %; HCT 44.7 % (39.0-53.0); HGB 15.4 gm/dL (13.0-17.5); Lymphocytes # (A) 2.2 k/uL (1.0-4.8); Lymphocytes % (A) 32 %; MCH 33.5 pg (25.0-35.0); MCHC 34.4 g/dL (31.0-37.0); MCV 97.6 fL (80.0-100.0); Mean Platelet Volume 8.2; Monocytes # (A) 0.3 k/uL (0-1.0); Monocytes % (A) 4 %; Neutrophils % (A) 60 %; Platelet Count 175 k/uL (150-450); RBC 4.58 m/uL (4.30-5.90); RDW 12.5 % (11.5-15.5); WBC 6.8 k/uL (3.8-10.6)
[2020-05-25 03:49] LABS: ALT 33 U/L (10-49); AST 26 U/L (14-35)
[2020-05-25 04:42] LABS: Valproic Acid (Depakene) <3.0 ug/mL (50.0-100.0)
== END | disposition home or self-care (01) ==
LOC: LABWHC1 15:07
PROVIDERS: ATTEND Psychiatry & Neurology Neurology
DX: G40.909 Epilepsy, unspecified, not intractable, without status epilepticus (principal)
CPT/HCPCS: 36415; 80164; 84450; 84460; 85025

== ENCOUNTER 2020-07-23 11:07 | Emergency (ER) | payer OTHER ==
[2020-07-23] MEDS ORDERED: SODIUM CHLORIDE 0.9% 1,000 ML IV STA (11:33)
[2020-07-23] MEDS ORDERED: FOLIC ACID 1 MG TAB PO STA (11:33)
[2020-07-23] MEDS ORDERED: THIAMINE 100 MG/ML 2 ML VIAL IM STA (11:33)
[2020-07-23] MEDS ORDERED: LORazepam 1 MG TAB PO STA (11:39)
--- NOTE | 2020-07-23 11:47 | ED ---
General Adult HPI - General Chief complaint: Headache Stated complaint: Increased Shakiness Time Seen by Provider: 07/23/20 11:27 Source: patient, EMS, RN notes reviewed Mode of arrival: EMS Limitations: no limitations - History of Present Illness Initial comments: Patient is a 55-year-old male that presents to emergency department complaining of anxiety and increased alcohol consumption with decrease food consumption. He noted that his last drink was this morning was about 8 ounces of a 25 ounce natural light beer. She noted that he drinks minimum of 3 25 ounce beers and maximum of 5 25 ounce beers per day. She did note that the last solid food he ate was half of a microwave burrito yesterday afternoon. He also noted that he's had a history of alcoholism. And once had 5 years sober while he was . He noted that he has been more anxious and understands that he needs to seek help from a therapist, AAA, primary care as he started ordered that one day he will fall asleep and not wake up. He did not appear to be in any apparent distress or pain while sitting up in bed during the examination and interview. She denied any chest pain shortness of breath nausea vomiting diarrhea constipation fever fatigue chills. Patient takes Lexapro and Depakote, but did not take them this morning - Related Data Home Medications Medication Instructions Recorded Confirmed Divalproex ER [Depakote ER] 2,000 mg PO DAILY 11/20/19 07/23/20 Escitalopram [Lexapro] 20 mg PO DAILY 11/20/19 07/23/20 Allergies Allergy/AdvReac Type Severity Reaction Status Date / Time No Known Allergies Allergy Verified 07/23/20 11:54 Review of Systems ROS Statement: Those systems with pertinent positive or pertinent negative responses have been documented in the HPI. ROS Other: All systems not noted in ROS Statement are negative. Past Medical History Past Medical History: Hypertension, Seizure Disorder Additional Past Medical History / Comment(s): alcoholism, brain bleed x 2 History of Any Multi-Drug Resistant Organisms: None Reported Past Surgical History: Hernia Repair, Orthopedic Surgery Additional Past Surgical History / Comment(s): lt femur Past Psychological History: Anxiety, Depression Smoking Status: Current every day smoker Past Alcohol Use History: Daily, Heavy Past Drug Use History: Marijuana General Exam Limitations: no limitations General appearance: alert, in no apparent distress Head exam: Present: atraumatic, normocephalic, normal inspection Eye exam: Present: normal appearance, PERRL, EOMI. Absent: scleral icterus, conjunctival injection, periorbital swelling ENT exam: Present: normal exam, mucous membranes moist Neck exam: Present: normal inspection. Absent: tenderness, meningismus, lymphadenopathy Respiratory exam: Present: normal lung sounds bilaterally. Absent: respiratory distress, wheezes, rales, rhonchi, stridor Cardiovascular Exam: Present: regular rate, normal rhythm, normal heart sounds. Absent: systolic murmur, diastolic murmur, rubs, gallop, clicks GI/Abdominal exam: Present: soft, normal bowel sounds. Absent: distended, tenderness, guarding, rebound, rigid Extremities exam: Present: normal inspection, full ROM, normal capillary refill. Absent: tenderness, pedal edema, joint swelling, calf tenderness Neurological exam: Present: alert, oriented X3, CN II-XII intact Psychiatric exam: Present: normal affect, normal mood Skin exam: Present: warm, dry, intact, normal color. Absent: rash Course Vital Signs 07/23/20 07/23/20 07/23/20 11:14 12:00 13:01 Temperature 98.6 F Pulse Rate 89 72 88 Respiratory 20 20 20 Rate Blood Pressure 170/118 151/89 168/108 O2 Sat by Pulse 98 99 99 Oximetry 07/23/20 14:02 Temperature Pulse Rate 83 Respiratory 18 Rate Blood Pressure 157/112 O2 Sat by Pulse 98 Oximetry Medical Decision Making - Medical Decision Making 55-year-old male complaining of shakiness, and increased alcohol consumption decreased food consumption. Labs, 1 L of saline bolus, thiamine, folic acid ordered. 1 mg of Ativan ordered according to CIWA. Labs grossly normal, alcohol level was 92 and liver enzymes were slightly elevated. Case discussed with Dr. Brizuela, was decided the patient to discharge home with close follow-up with primary care. - Lab Data Result diagrams: 07/23/20 11:44 07/23/20 11:44 Lab Results 07/23/20 07/23/20 07/23/20 Range/Units 11:44 11:44 13:04 WBC 3.9 (3.8-10.6) k/uL RBC 4.96 (4.30-5.90) m/uL Hgb 16.3 (13.0-17.5) gm/dL Hct 47.5 (39.0-53.0) % MCV 95.8 (80.0-100.0) fL MCH 32.8 (25.0-35.0) pg MCHC 34.2 (31.0-37.0) g/dL RDW 12.8 (11.5-15.5) % Plt Count 192 (150-450) k/uL MPV 7.5 Neutrophils % 66 % Lymphocytes % 20 % Monocytes % 8 % Eosinophils % 2 % Basophils % 2 % Neutrophils # 2.6 (1.3-7.7) k/uL Lymphocytes # 0.8 L (1.0-4.8) k/uL Monocytes # 0.3 (0-1.0) k/uL Eosinophils # 0.1 (0-0.7) k/uL Basophils # 0.1 (0-0.2) k/uL Sodium 136 L (137-145) mmol/L Potassium 4.4 (3.5-5.1) mmol/L Chloride 99 (98-107) mmol/L Carbon Dioxide 23 (22-30) mmol/L Anion Gap 14 mmol/L BUN 11 (9-20) mg/dL Creatinine 0.70 (0.66-1.25) mg/dL Est GFR (CKD-EPI)AfAm >90 (>60 ml/min/1.73 sqM) Est GFR (CKD-EPI)NonAf >90 (>60 ml/min/1.73 sqM) Glucose 94 (74-99) mg/dL Calcium 9.2 (8.4-10.2) mg/dL Magnesium 1.7 (1.6-2.3) mg/dL Total Bilirubin 0.5 (0.2-1.3) mg/dL AST 110 H (17-59) U/L ALT 64 H (4-49) U/L Alkaline Phosphatase 78 (38-126) U/L Total Protein 8.0 (6.3-8.2) g/dL Albumin 4.8 (3.5-5.0) g/dL Amylase 70 (30-110) U/L Lipase 90 (23-300) U/L Urine Color Yellow Urine Appearance Clear (Clear) Urine pH 6.0 (5.0-8.0) Ur Specific [place] 1.014 (1.001-1.035) Urine Protein Trace H (Negative) Urine Glucose (UA) Negative (Negative) Urine Ketones 1+ H (Negative) Urine Blood Trace H (Negative) Urine Nitrite Negative (Negative) Urine Bilirubin Negative (Negative) Urine Urobilinogen <2.0 (<2.0) mg/dL Ur Leukocyte Esterase Negative (Negative) Urine RBC 4 (0-5) /hpf Urine WBC 1 (0-5) /hpf Valproic Acid <10.0 ug/mL Serum Alcohol 92 mg/dL Disposition Clinical Impression: Anxiety, Alcohol abuse Disposition: HOME SELF-CARE Condition: Stable Instructions (If sedation given, give patient instructions): Acute Headache (E D), Abuse of Alcohol (ED) Additional Instructions: Please return to the Emergency Department if symptoms worsen or any other concerns. Continue to take at home medication for high cholesterol and seizures as prescribed. Follow-up primary care 1-2 days, and possibly get resources for AA and/or therapy. Is patient prescribed a controlled substance at d/c from ED?: No Referrals: Abhishek Vergara MD [Primary Care Provider] - 1-2 days Time of Disposition: 15:19
[2020-07-23 11:53] LABS: Basophils # (A) 0.1 k/uL (0-0.2); Basophils % (A) 2 %; Eosinophils # (A) 0.1 k/uL (0-0.7); Eosinophils % (A) 2 %; HCT 47.5 % (39.0-53.0); HGB 16.3 gm/dL (13.0-17.5); Lymphocytes # (A) 0.8 k/uL (1.0-4.8); Lymphocytes % (A) 20 %; MCH 32.8 pg (25.0-35.0); MCHC 34.2 g/dL (31.0-37.0); MCV 95.8 fL (80.0-100.0); Mean Platelet Volume 7.5; Monocytes # (A) 0.3 k/uL (0-1.0); Monocytes % (A) 8 %; Neutrophils # (A) 2.6 k/uL (1.3-7.7); Neutrophils % (A) 66 %; Platelet Count 192 k/uL (150-450); RBC 4.96 m/uL (4.30-5.90); RDW 12.8 % (11.5-15.5); WBC 3.9 k/uL (3.8-10.6)
[2020-07-23 12:04] LABS: ALT 64 U/L (4-49); AST 110 U/L (17-59); African American GFR (CKD) >90 (>60 ml/min/1.73 sqM); Albumin 4.8 g/dL (3.5-5.0); Alkaline Phosphatase 78 U/L (38-126); Amylase 70 U/L (30-110); Anion Gap 14 mmol/L; Blood Urea Nitrogen 11 mg/dL (9-20); Calcium 9.2 mg/dL (8.4-10.2); Carbon Dioxide 23 mmol/L (22-30); Chloride 99 mmol/L (98-107); Glucose 94 mg/dL (74-99); Lipase 90 U/L (23-300); Magnesium 1.7 mg/dL (1.6-2.3); Non-African American GFR(CKD) >90 (>60 ml/min/1.73 sqM); Potassium 4.4 mmol/L (3.5-5.1); Sodium 136 mmol/L (137-145); Total Bilirubin 0.5 mg/dL (0.2-1.3)
[2020-07-23 12:07] LABS: Alcohol 92 mg/dL
[2020-07-23 12:20] LABS: Valproic Acid (Depakene) <10.0 ug/mL
[2020-07-23] MEDS ORDERED: LORazepam 2 MG/ML INJ IV PRN (12:42)
[2020-07-23 13:22] LABS: Appearance,Urine Clear (Clear); Bilirubin,Urine Negative (Negative); Blood,Urine Trace (Negative); Color,Urine Yellow; Glucose,Urine (UA) Negative (Negative); Ketones,Urine 1+ (Negative); Leukocyte Esterase,Urine Negative (Negative); Nitrite,Urine Negative (Negative); Protein,Urine Trace (Negative); RBC,Urine 4 /hpf (0-5); Specific Gravity,Urine 1.014 (1.001-1.035); Urobilinogen,Urine <2.0 mg/dL (<2.0); WBC,Urine 1 /hpf (0-5)
[2020-07-23 14:04] VITALS: RESP 18
[2020-07-23 15:38] VITALS: BP 157/78; PULSE 84; TEMP 98.2
[2020-07-23] MEDS ORDERED: THIAMINE 100 MG TAB PO SCH (17:30)
== END 2020-07-23 15:30 | disposition home or self-care (01) ==
LOC: EC 11:07
DX: F41.9 Anxiety disorder, unspecified (principal); F10.10 Alcohol abuse, uncomplicated; F32.9 Major depressive disorder, single episode, unspecified; G40.909 Epilepsy, unspecified, not intractable, without status epilepticus; F17.200 Nicotine dependence, unspecified, uncomplicated; Z79.899 Other long term (current) drug therapy; Y90.4 Blood alcohol level of 80-99 mg/100 ml
CPT/HCPCS: 36415; 80164; 80053; 82150; 83690; 83735; 85025; 81001; 99283; 96360; 96372; G0480; J3411; 80320

== ENCOUNTER 2020-09-17 18:17 | Emergency (ER) | payer OTHER ==
[2020-09-17 18:37] VITALS: BP 155/88; PULSE 92; RESP 20; TEMP 97.6
[2020-09-17] MEDS ORDERED: SODIUM CHLORIDE 0.9% 500 ML 500 ML IV STA (19:42)
[2020-09-17 20:03] LABS: Basophils # (A) 0.1 k/uL (0-0.2); Basophils % (A) 1 %; Eosinophils # (A) 0.1 k/uL (0-0.7); Eosinophils % (A) 3 %; HCT 51.2 % (39.0-53.0); Lymphocytes # (A) 2.1 k/uL (1.0-4.8); Lymphocytes % (A) 49 %; MCH 33.4 pg (25.0-35.0); MCHC 35.2 g/dL (31.0-37.0); MCV 94.8 fL (80.0-100.0); Mean Platelet Volume 7.2; Monocytes # (A) 0.2 k/uL (0-1.0); Monocytes % (A) 6 %; Neutrophils # (A) 1.7 k/uL (1.3-7.7); Neutrophils % (A) 39 %; Platelet Count 144 k/uL (150-450); RDW 12.2 % (11.5-15.5); WBC 4.2 k/uL (3.8-10.6)
[2020-09-17 20:19] LABS: Potassium 4.7 mmol/L (3.5-5.1); Prothrombin Time 10.9 sec (9.0-12.0)
[2020-09-17 20:20] LABS: ALT 121 U/L (4-49); AST 178 U/L (17-59); African American GFR (CKD) >90 (>60 ml/min/1.73 sqM); Albumin 5.1 g/dL (3.5-5.0); Alkaline Phosphatase 83 U/L (38-126); Amylase 73 U/L (30-110); Anion Gap 13 mmol/L; Blood Urea Nitrogen 8 mg/dL (9-20); Calcium 9.2 mg/dL (8.4-10.2); Carbon Dioxide 24 mmol/L (22-30); Chloride 98 mmol/L (98-107); Glucose 80 mg/dL (74-99); Lipase 163 U/L (23-300); Magnesium 1.9 mg/dL (1.6-2.3); Non-African American GFR(CKD) >90 (>60 ml/min/1.73 sqM); Phosphorus 4.2 mg/dL (2.5-4.5); Sodium 135 mmol/L (137-145); Total Bilirubin 0.6 mg/dL (0.2-1.3); Total Protein 8.3 g/dL (6.3-8.2)
[2020-09-17 20:23] LABS: Amphetamine Screen,Urine Not Detected (NotDetected); Barbiturate Screen,Urine Not Detected (NotDetected); Benzodiazepines Screen,Urine Not Detected (NotDetected); Cocaine Screen,Urine Detected (NotDetected); Methadone Screen, Urine Not Detected (NotDetected); Opiate Screen,Urine Not Detected (NotDetected); Oxycodone Screen, Urine Not Detected (NotDetected); Phencyclidine Screen,Urine Not Detected (NotDetected); Tricyclic Antidepressant,Urine Not Detected (NotDetected); Urn Cannabinoid Scrn Detected (NotDetected)
[2020-09-17 20:33] LABS: Alcohol 262 mg/dL; Appearance,Urine Clear (Clear); Bilirubin,Urine Negative (Negative); Blood,Urine Small (Negative); Color,Urine Light Yellow; Glucose,Urine (UA) Negative (Negative); Hyaline Casts,Urine 1 /lpf (0-2); Ketones,Urine Negative (Negative); Leukocyte Esterase,Urine Negative (Negative); Mucus,Urine Rare /hpf; Nitrite,Urine Negative (Negative); PH, Urine 5.5 (5.0-8.0); Protein,Urine Trace (Negative); RBC,Urine <1 /hpf (0-5); Specific Gravity,Urine 1.003 (1.001-1.035); Urobilinogen,Urine <2.0 mg/dL (<2.0); WBC,Urine <1 /hpf (0-5)
[2020-09-17] MEDS ORDERED: SODIUM CHLORIDE 0.9% 1,000 ML IV ONE (21:07)
--- NOTE | 2020-09-17 21:07 | CT ---
EXAMINATION TYPE: CT brain wo con DATE OF EXAM: 09/17/2020 COMPARISON: 12/19/2019 INDICATION: ETOH, fall. DLP: 1127.4 mGycm, Automated exposure control for dose reduction was used. CONTRAST: None CT of the brain is performed utilizing 3 mm thick sections through the posterior fossa and 3 mm thick sections through the remaining calvarium. Study is performed within 24 hours of arrival to the hosp [facility]. No abnormal hyperdensity is present to suggest an acute intracranial hemorrhage. No mass lesion is evident. No acute infarcts are evident. Appears to be encephalomalacia of the inferior right frontal lobe. Thi s was present previously Ventricles and sulci are appropriate for the patient age. Paranasal sinuses and mastoid air cells within the [id number] are clear. IMPRESSIONS: 1. No acute intracranial process. 2. 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
--- NOTE | 2020-09-17 21:10 | ED ---
Alcohol HPI - General Chief Complaint: Alcohol Stated Complaint: ETOH Time Seen by Provider: 09/17/20 19:20 Source: patient Mode of arrival: ambulatory Limitations: no limitations - History of Present Illness Initial Comments: 55-year-old male presenting to the emergency department today for chief complaint of alcohol intoxication not eating very much. Patient states he is a daily drinker he states his roommate felt like he was neglected himself and told him to come to the ER. Patient states he thinks he is dehydrated. Patient states he has been drinking today. He denies any seizure activity he denies any localized weakness sensation deficit speech changes vision changes he denies any falls he denies any shakes or tremors palpitations, hallucinations. Pt denies suicidal or homicidal ideations. Denies fall, but pt states he has hx of frequen t falls and has been drunk. denies neck pain. No evidence of trauma/head trauma on exam. - Related Data Home Medications Medication Instructions Recorded Confirmed Divalproex ER [Depakote ER] 2,000 mg PO DAILY 11/20/19 09/17/20 Escitalopram [Lexapro] 20 mg PO DAILY 11/20/19 09/17/20 Allergies Allergy/AdvReac Type Severity Reaction Status Date / Time No Known Allergies Allergy Verified 09/17/20 18:36 Review of Systems ROS Statement: Those systems with pertinent positive or pertinent negative responses have been documented in the HPI. ROS Other: All systems not noted in ROS Statement are negative. Past Medical History Past Medical History: Hypertension, Seizure Disorder Additional Past Medical History / Comment(s): alcoholism, brain bleed x 2 History of Any Multi-Drug Resistant Organisms: None Reported Past Surgical History: Hernia Repair, Orthopedic Surgery Additional Past Surgical History / Comment(s): lt femur Past Psychological History: Anxiety, Depression Smoking Status: Current every day smoker Past Alcohol Use History: Abuse, Daily, Heavy Past Drug Use History: Marijuana General Exam - General Exam Comments Initial Comments: General: The patient is awake and alert, in no distress, smell of alcohol. Eye: +3 mm pupils are equal, round and reactive to light, extra-ocular movements are intact. No nystagmus. There is normal conjunctiva bilaterally. No signs of icterus. Ears, nose, mouth and throat: There are moist mucous membranes and no oral lesions. Neck: The neck is supple, there is no tenderness or JVD. no neck pain, no racoon or saucedo sign. Cardiovascular: There is a regular rate and rhythm. No murmur, rub or gallop is appreciated. Respiratory: Lungs are clear to auscultation, respirations are non-labored, breath sounds are equal. No wheezes, stridor, rales, or rhonchi. Gastrointestinal: Soft, non-distended, non-tender abdomen without masses or or ganomegaly noted. There is no rebound or guarding present. Musculoskeletal: Normal ROM, no tenderness. Strength 5/5. Sensation intact. Radial and DP pulses equal bilaterally 2+. finger to nose and heel to godfrey smooth and coordinated. no tremors. Neurological: A&O x 3. CN II-XII intact, There are no obvious motor or sensory deficits. Coordination appears grossly intact. Speech is normal. Skin: Skin is warm and dry and no rashes or lesions are noted. Psychiatric: Cooperative, appropriate mood & affect, normal judgment. Limitations: no limitations Course Vital Signs 09/17/20 18:34 Temperature 97.6 F Pulse Rate 92 Respiratory 20 Rate Blood Pressure 155/88 O2 Sat by Pulse 99 Oximetry Medical Decision Making - Medical Decision Making pt intoxicated. patient daily drinking. he is aaox3 and answering questions appropriately. Patient has no focal deficits. He does not appeared altered. At this time with negative CT of the brain, no significant I derangements. Patient tolerated oral intake, appearing well and nontoxic and discussing the case with attending provider, we feel patient is stable for discharge with outpatient primary care follow-up. Pt has ride home, he is not walking nor driving. - Lab Data Result diagrams: 09/17/20 19:42 09/17/20 19:42 Lab Results 09/17/20 09/17/20 09/17/20 Range/Units 19:42 19:42 19:42 WBC 4.2 (3.8-10.6) k/uL RBC 5.40 (4.30-5.90) m/uL Hgb 18.0 H (13.0-17.5) gm/dL Hct 51.2 (39.0-53.0) % MCV 94.8 (80.0-100.0) fL MCH 33.4 (25.0-35.0) pg MCHC 35.2 (31.0-37.0) g/dL RDW 12.2 (11.5-15.5) % Plt Count 144 L (150-450) k/uL MPV 7.2 Neutrophils % 39 % Lymphocytes % 49 % Monocytes % 6 % Eosinophils % 3 % Basophils % 1 % Neutrophils # 1.7 (1.3-7.7) k/uL Lymphocytes # 2.1 (1.0-4.8) k/uL Monocytes # 0.2 (0-1.0) k/uL Eosinophils # 0.1 (0-0.7) k/uL Basophils # 0.1 (0-0.2) k/uL PT 10.9 (9.0-12.0) sec INR 1.0 (<1.2) Sodium (137-145) mmol/L Potassium (3.5-5.1) mmol/L Chloride (98-107) mmol/L Carbon Dioxide (22-30) mmol/L Anion Gap mmol/L BUN (9-20) mg/dL Creatinine (0.66-1.25) mg/dL Est GFR (CKD-EPI)AfAm (>60 ml/min/1.73 sqM) Est GFR (CKD-EPI)NonAf (>60 ml/min/1.73 sqM) Glucose (74-99) mg/dL Calcium (8.4-10.2) mg/dL Phosphorus (2.5-4.5) mg/dL Magnesium (1.6-2.3) mg/dL Total Bilirubin (0.2-1.3) mg/dL AST (17-59) U/L ALT (4-49) U/L Alkaline Phosphatase (38-126) U/L Total Protein (6.3-8.2) g/dL Albumin (3.5-5.0) g/dL Amylase (30-110) U/L Lipase (23-300) U/L Urine Color Light Yellow Urine Appearance Clear (Clear) Urine pH 5.5 (5.0-8.0) Ur Specific [place] 1.003 (1.001-1.035) Urine Protein Trace H (Negative) Urine Glucose (UA) Negative (Negative) Urine Ketones Negative (Negative) Urine Blood Small H (Negative) Urine Nitrite Negative (Negative) Urine Bilirubin Negative (Negative) Urine Urobilinogen <2.0 (<2.0) mg/dL Ur Leukocyte Esterase Negative (Negative) Urine RBC <1 (0-5) /hpf Urine WBC <1 (0-5) /hpf Hyaline Casts 1 (0-2) /lpf Urine Mucus Rare H (None) /hpf Urine Opiates Screen Not Detected (NotDetected) Ur Oxycodone Screen Not Detected (NotDetected) Urine Methadone Screen Not Detected (NotDetected) Ur Propoxyphene Screen Not Detected (NotDetected) Ur Barbiturates Screen Not Detected (NotDetected) U Tricyclic Antidepress Not Detected (NotDetected) Ur Phencyclidine Scrn Not Detected (NotDetected) Ur Amphetamines Screen Not Detected (NotDetected) U Methamphetamines Scrn Not Detected (NotDetected) U Benzodiazepines Scrn Not Detected (NotDetected) Urine Cocaine Screen Detected H (NotDetected) U Marijuana (THC) Screen Detected H (NotDetected) Serum Alcohol mg/dL 09/17/20 Range/Units 19:42 WBC (3.8-10.6) k/uL RBC (4.30-5.90) m/uL Hgb (13.0-17.5) gm/dL Hct (39.0-53.0) % MCV (80.0-100.0) fL MCH (25.0-35.0) pg MCHC (31.0-37.0) g/dL RDW (11.5-15.5) % Plt Count (150-450) k/uL MPV Neutrophils % % Lymphocytes % % Monocytes % % Eosinophils % % Basophils % % Neutrophils # (1.3-7.7) k/uL Lymphocytes # (1.0-4.8) k/uL Monocytes # (0-1.0) k/uL Eosinophils # (0-0.7) k/uL Basophils # (0-0.2) k/uL PT (9.0-12.0) sec INR (<1.2) Sodium 135 L (137-145) mmol/L Potassium 4.7 (3.5-5.1) mmol/L Chloride 98 (98-107) mmol/L Carbon Dioxide 24 (22-30) mmol/L Anion Gap 13 mmol/L BUN 8 L (9-20) mg/dL Creatinine 0.68 (0.66-1.25) mg/dL Est GFR (CKD-EPI)AfAm >90 (>60 ml/min/1.73 sqM) Est GFR (CKD-EPI)NonAf >90 (>60 ml/min/1.73 sqM) Glucose 80 (74-99) mg/dL Calcium 9.2 (8.4-10.2) mg/dL Phosphorus 4.2 (2.5-4.5) mg/dL Magnesium 1.9 (1.6-2.3) mg/dL Total Bilirubin 0.6 (0.2-1.3) mg/dL AST 178 H (17-59) U/L ALT 121 H (4-49) U/L Alkaline Phosphatase 83 (38-126) U/L Total Protein 8.3 H (6.3-8.2) g/dL Albumin 5.1 H (3.5-5.0) g/dL Amylase 73 (30-110) U/L Lipase 163 (23-300) U/L Urine Color Urine Appearance (Clear) Urine pH (5.0-8.0) Ur Specific [place] (1.001-1.035) Urine Protein (Negative) Urine Glucose (UA) (Negative) Urine Ketones (Negative) Urine Blood (Negative) Urine Nitrite (Negative) Urine Bilirubin (Negative) Urine Urobilinogen (<2.0) mg/dL Ur Leukocyte Esterase (Negative) Urine RBC (0-5) /hpf Urine WBC (0-5) /hpf Hyaline Casts (0-2) /lpf Urine Mucus (None) /hpf Urine Opiates Screen (NotDetected) Ur Oxycodone Screen (NotDetected) Urine Methadone Screen (NotDetected) Ur Propoxyphene Screen (NotDetected) Ur Barbiturates Screen (NotDetected) U Tricyclic Antidepress (NotDetected) Ur Phencyclidine Scrn (NotDetected) Ur Amphetamines Screen (NotDetected) U Methamphetamines Scrn (NotDetected) U Benzodiazepines Scrn (NotDetected) Urine Cocaine Screen (NotDetected) U Marijuana (THC) Screen (NotDetected) Serum Alcohol 262 H* mg/dL Disposition Clinical Impression: Alcohol intoxication, Alcohol abuse Disposition: HOME SELF-CARE Condition: Good Instructions (If sedation given, give patient instructions): Alcohol Intoxication (ED) Additional Instructions: Please use medication as discussed. Please follow-up with family doctor in the next 2 days. Please return to emergency room if the symptoms increase or worsen or for any other concerns. Is patient prescribed a controlled substance at d/c from ED?: No Referrals: Abhishek Vergara MD [Primary Care Provider] - 1-2 days Time of Disposition: 21:10
== END 2020-09-17 21:15 | disposition home or self-care (01) ==
LOC: EC 18:17
DX: F10.129 Alcohol abuse with intoxication, unspecified (principal); I10 Essential (primary) hypertension; F41.9 Anxiety disorder, unspecified; F32.9 Major depressive disorder, single episode, unspecified; F17.200 Nicotine dependence, unspecified, uncomplicated; Z79.899 Other long term (current) drug therapy
CPT/HCPCS: 36415; 80053; 82150; 83690; 83735; 84100; 85025; 85610; 81001; 80306; 70450; 99284; G0480; 80320